=== PATIENT | female | born 1940 | race Hispanic/Latino ===

== ENCOUNTER 2017-03-04 05:49 | Emergency (ER) | payer MEDICARE, MEDICAID ==
[2017-03-04 06:12] VITALS: RESP 18
[2017-03-04 07:02] LABS: BASO # 0.1 K/uL (0.0-0.2); BASO % 1.2 % (0.0-2.0); EOS % 0.5 % (0.0-4.0); HEMATOCRIT 38.8 % (34.0-47.0); LYMPH # 1.2 K/uL (1.0-4.3); MEAN CELL VOLUME 82.2 fl (81.0-99.0); MEAN CORPUSCULAR HEMOGLOBIN 27.2 pg (27.0-31.0); MEAN CORPUSCULAR HGB CONC 33.1 g/dL (33.0-37.0); MEAN PLATELET VOLUME 8.5 fl (7.2-11.7); MONO # 0.5 K/uL (0.0-0.8); MONO % 5.8 % (0.0-10.0); NEUT # 6.1 K/uL (1.8-7.0); NEUT % 77.5 % (50.0-75.0); NRBC % 0.1 % (0.0-0.0); RED CELL DISTRIBUTION WIDTH 14.3 % (11.5-14.5); WHITE BLOOD COUNT 7.9 K/uL (4.8-10.8)
--- NOTE | 2017-03-04 07:03 | ED PDOC ---
Syncope/Near Syncope/Dizziness Time Seen by Provider: 03/04/17 06:00 Chief Complaint (Nursing): Dizziness/Lightheaded Chief Complaint (Provider): dizziness History Per: Patient History/Exam Limitations: no limitations Onset/Duration Of Symptoms: Hrs Current Symptoms Are (Timing): Better Additional Complaint(s): Martina Hernandez is a 76 yo F with PMH vertigo, DM2, HTN, breast cancer who presented to the ED today 03/04/17 due to 2 episodes of dizziness overnight. Pt states that she woke up around 1 am to use the restroom and felt dizzy- called 911. As per pt, EMS came and took her BP (170/100), and she did a selfcheck fingerstick (122); she states that EMS told her they can only take her to [facility], but pt wanted to go to [place], so she refused to go with them. She went back to bed, and woke up around 5 am with the similar dizzy feeling, states "I felt the bed was upside down." States she tried to stand up from bed but fell backwards onto bed (denies LOC or head trauma). At that point, pt called her daughters who brought her to ED. Took 25 mg meclezine this morning. In ED she denies dizziness, states she feels her head is heavy. Denies associated nausea and/or vomiting. Does not exhibit any focal neural deficits. Pt has had vertigo for over 10 years and is supposed to be on standing dose of meclezine 25mg BID, but admitted in private that she has been taking meclezine only once daily for about one year now. States that this episode feels different from her usual vertigo. ROS: denies chest pain, shortness of breath, dizziness at present time, headache , PMD: Dr. Bland Past Med hx: HTN, DM2, vertigo, breast cancer Past Surg hx: double mastectomy and reconstruction, knee replacement, parathyroid gland resection Lives alone, ambulates with walker, able to cook/care for herself. As per daughters lives in "building with elderly people" Allergies: naproxen Past Medical History Vital Signs: Last Vital Signs Temp 97.5 F L 03/04/17 06:05 Pulse 98 H 03/04/17 06:05 Resp 18 03/04/17 06:05 BP 154/94 H 03/04/17 06:05 Pulse Ox 99 03/04/17 06:05 - Medical History PMH: Arthritis (left knee), Diabetes, HTN Other PMH: Vertigo - Surgical History Other surgeries: knee replacement, double mastectomy and reconstruction - Family History Family History: States: Unknown Family Hx - Living Arrangements Living Arrangements: Long Term/Assist Lvng - Home Medications Home Medications: Ambulatory Orders Medication Instructions Recorded Naproxen [Naprosyn] 500 mg PO Q12H #20 tab 06/10/16 traMADol [Ultram] 50 mg PO Q8 #10 tab 06/10/16 - Allergies Allergies/Adverse Reactions: Allergies Allergy/AdvReac Type Severity Reaction Status Date / Time naproxen AdvReac bleeding Verified 03/04/17 06:04 Review of Systems ROS Statement: Except As Marked, All Systems Reviewed And Found Negative Constitutional: Positive for: Other Neurological: Positive for: Dizziness Physical Exam - Physical Exam Appears: Positive for: No Acute Distress Head Exam: Positive for: ATRAUMATIC, NORMAL INSPECTION Skin: Positive for: Normal Color, Warm, Dry Eye Exam: Positive for: Normal appearance, EOMI Neck: Positive for: Painless ROM, Supple Cardiovascular/Chest: Positive for: Regular Rate, Rhythm. Negative for: Murmur Respiratory: Positive for: Normal Breath Sounds. Negative for: Respiratory Distress Gastrointestinal/Abdominal: Positive for: Normal Exam, Bowel Sounds, Soft Extremity: Negative for: Tenderness, Pedal Edema, Deformity Neurologic/Psych: Positive for: Alert, compliance auditor II-XII, Oriented - ECG O2 Sat by Pulse Oximetry: 99 Medical Decision Making Medical Decision Makin Fingerstick EKG CMP CBC Troponin Head CT w/o contrast Pt discussed with Dr. Monge; to be signed out to Dr. Brunson Disposition - Clinical Impression Clinical Impression: Near syncope - Patient ED Disposition Is Patient to be Admitted: Transfer of Care (to Dr. Brunson) - Disposition Disposition Time: 07:08 Condition: FAIR
[2017-03-04 07:10] LABS: ALB/GLOB RATIO 0.9 (1.0-2.1); ALKALINE PHOSPHATASE 129 U/L (38-126); ALT/SGPT 66 U/L (9-52); AST/SGOT 55 U/L (14-36); BILIRUBIN,TOTAL 0.5 mg/dl (0.2-1.3); BLOOD UREA NITROGEN 15 mg/dl (7-17); CARBON DIOXIDE 24 mmol/L (22-30); CHLORIDE 108 mmol/L (98-107); GFR AFRICAN-AMERICAN > 60; GLUCOSE,RANDOM 205 mg/dL (65-105); POTASSIUM 4.5 MMOL/L (3.6-5.0); SODIUM 142 mmol/l (132-148); TOTAL PROTEIN 8.1 G/DL (6.3-8.2)
--- NOTE | 2017-03-04 07:39 | CT ---
EXAM: CT Head Without Intravenous Contrast EXAM DATE/TIME: 03/04/2017 6:36 AM CLINICAL HISTORY: 76 years old, female; Signs and symptoms; Dizziness and other: Head heaviness; Patient HX: HX breast cancer; Additional info: Head heaviness/dizziness TECHNIQUE: Axial computed tomography images of the head/brain without intravenous contrast. All CT scans at this facility use one or more dose reduction techniques, viz.: automated exposure control; ma/kV adjustment per patient size (including targeted exams where dose is matched to indication; i.e. head); or iterative reconstruction technique. Coronal and sagittal reformatted images were created and reviewed. COMPARISON: No relevant prior studies available. FINDINGS: There is no subdural or subarachnoid hemorrhage. There is no intraparenchymal hemorrhage or hemorrhagic contusion. Normal art white differentiation is noted. No midline shift or mass effect is identified. There are periventricular white matter changes of small vessel ischemic disease. There is cerebral atrophy. Calvarium and visualized facial bones appear intact. There is kathy bullosa right middle turbinate with rightward deviation of nasal septum. Included paranasal sinuses and mastoids are clear. IMPRESSION: 1. No evidence of acute intracerebral hemorrhage or edema. 2. Small vessel ischemic disease and atrophy.
[2017-03-04 07:52] VITALS: O2SAT 98
--- NOTE | 2017-03-04 08:42 | ED PDOC ---
- Laboratory Results Result Diagrams: 03/04/17 06:58 03/04/17 06:58 - ECG O2 Sat by Pulse Oximetry: 98 Medical Decision Making Medical Decision Making: Time: 07:00 Patient is signed over to me by Dr. Monge pending reevaluation Time: 08:40 Upon reevaluation, patient is feeling much better. Pt ambulated in ED without difficulty. Daughter states she will stay with patient today. Scribe Attestation: Documented by Hu Johnson acting as a scribe for Emi Brunson MD. Scribe Attestation: All medical record entries made by the Scribe were at my direction and personally dictated by me. I have reviewed the chart and agree that the record accurately reflects my personal performance of the history, physical exam, medical decision making, and the department course for this patient. I have also personally directed, reviewed, and agree with the discharge instructions and disposition. Disposition - Clinical Impression Clinical Impression: Vertigo - POA Present On Arrival: None - Disposition Referrals: Merrill Bland MD [Family Provider] - Disposition: Routine/Home Disposition Time: 08:50 Condition: IMPROVED Instructions: Vertigo (ED) Forms: [employer] (Mongolian)
[2017-03-04 08:59] VITALS: BP 130/80; PULSE 80; TEMP 97
--- NOTE | 2017-03-04 14:07 | CARD ---
APPROVED REPORT EKG Measurement Heart [id number] <Conclusion> Normal sinus rhythm Inferior infarct, age undetermined Abnormal ECG
== END 2017-03-04 08:59 | disposition home or self-care (01) ==
LOC: H.ER 05:49
DX: R42 Dizziness and giddiness (principal); E11.9 Type 2 diabetes mellitus without complications; I10 Essential (primary) hypertension; Z85.3 Personal history of malignant neoplasm of breast

== ENCOUNTER 2017-03-12 11:38 | Emergency (ER) | payer MEDICARE, MEDICAID ==
[2017-03-12 11:43] VITALS: BP 165/95; PULSE 116; RESP 20; O2SAT 99
[2017-03-12] MEDS ORDERED: Sodium Chloride 0.9% 1,000 ML IV STA (11:52)
--- NOTE | 2017-03-12 12:04 | ED PDOC ---
HPI: General Adult Time Seen by Provider: 03/12/17 11:44 Chief Complaint (Nursing): Fever Chief Complaint (Provider): Fever History Per: Patient History/Exam Limitations: no limitations Onset/Duration Of Symptoms: Days (x2) Current Symptoms Are (Timing): Still Present Additional Complaint(s): Martina Hernandez is a 76 year old female with a past medical history of hypertension status post left knee replacement who presents to the ED complaining of fever and body aches x2 days. Denies associated cough, nausea, vomiting, diarrhea, abdominal pain, and urinary symptoms. PMD: Merrill Bland MD Past Medical History Reviewed: Historical Data, Nursing Documentation, Vital Signs Vital Signs: Last Vital Signs Temp 97 F L 03/12/17 12:53 Pulse 116 H 03/12/17 11:42 Resp 20 03/12/17 11:42 BP 165/95 H 03/12/17 11:42 Pulse Ox 99 03/12/17 12:10 - Medical History PMH: Arthritis (left knee), Diabetes, HTN - Surgical History Other surgeries: Left knee replacement - Family History Family History: States: Unknown Family Hx - Home Medications Home Medications: Ambulatory Orders Medication Instructions Recorded Naproxen [Naprosyn] 500 mg PO Q12H #20 tab 06/10/16 traMADol [Ultram] 50 mg PO Q8 #10 tab 06/10/16 Ciprofloxacin HCl [Cipro] 500 mg PO BID #20 tab 03/12/17 - Allergies Allergies/Adverse Reactions: Allergies Allergy/AdvReac Type Severity Reaction Status Date / Time naproxen AdvReac bleeding Verified 03/04/17 06:04 Review of Systems ROS Statement: Except As Marked, All Systems Reviewed And Found Negative Constitutional: Positive for: Fever Respiratory: Negative for: Cough Gastrointestinal: Negative for: Nausea, Vomiting, Abdominal Pain, Diarrhea Genitourinary Female: Negative for: Dysuria, Frequency, Incontinence, Hematuria Musculoskeletal: Positive for: Other (Body aches) Physical Exam - Reviewed Nursing Documentation Reviewed: Yes Vital Signs Reviewed: Yes - Physical Exam Appears: Positive for: Well, Non-toxic, No Acute Distress Head Exam: Positive for: ATRAUMATIC, NORMAL INSPECTION, NORMOCEPHALIC Skin: Positive for: Normal Color, Warm, DRY Eye Exam: Positive for: EOMI, Normal appearance, PERRL Neck: Positive for: Normal, Painless ROM, Supple Cardiovascular/Chest: Positive for: Regular Rate, Rhythm. Negative for: Murmur Respiratory: Positive for: Normal Breath Sounds. Negative for: Respiratory Distress Gastrointestinal/Abdominal: Positive for: Normal Exam, Bowel Sounds, Soft. Negative for: Tenderness Back: Positive for: Normal Inspection. Negative for: L CVA Tenderness, R CVA Tenderness, Vertebral Tenderness Extremity: Positive for: Normal ROM, Other (Left knee surgical scar, no erythema , no warmth). Negative for: Pedal Edema, Deformity Neurologic/Psych: Positive for: Alert, Oriented. Negative for: Motor/Sensory Deficits - Laboratory Results Result Diagrams: 03/12/17 12:07 03/12/17 12:07 - ECG O2 Sat by Pulse Oximetry: 99 (RA) Pulse Ox Interpretation: Normal Medical Decision Making Medical Decision Making: Time: 11:51 Initial Impression: Non-viral illness Plan: --VBG shock panel --EKG --CMP --ED urine dipstick --CBC w/ differential --X-Ray chest two views --Sodium Chloride 0.9% 1,000 ml IV --Tylenol 650 mg PO --Urine culture --Blood culture --Influenza A B --Reevaluation Scribe Attestation: Documented by Subhash Aguilera acting as a scribe for Matt Khan MD. Scribe Attestation: All medical record entries made by the Scribe were at my direction and personally dictated by me. I have reviewed the chart and agree that the record accurately reflects my personal performance of the history, physical exam, medical decision making, and the department course for this patient. I have also personally directed, reviewed, and agree with the discharge instructions and disposition. Disposition - Clinical Impression Clinical Impression: UTI (urinary tract infection) - Patient ED Disposition Is Patient to be Admitted: No Counseled Patient/Family Regarding: Studies Performed, Diagnosis, Need For Followup, Rx Given - Disposition Referrals: Merrill Bland MD [Staff Provider] - Disposition: Routine/Home Disposition Time: 13:34 Condition: FAIR Prescriptions: Ciprofloxacin HCl [Cipro] 500 mg PO BID #20 tab Instructions: Urinary Tract Infection in Women (ED) Forms: [employer] (Emirati)
[2017-03-12 12:13] LABS: BASO # 0.1 K/uL (0.0-0.2); EOS % 0.1 % (0.0-4.0); HEMATOCRIT 38.7 % (34.0-47.0); LYMPH # 1.7 K/uL (1.0-4.3); LYMPH % 11.8 % (20.0-40.0); MEAN CELL VOLUME 80.7 fl (81.0-99.0); MEAN CORPUSCULAR HEMOGLOBIN 26.9 pg (27.0-31.0); MEAN CORPUSCULAR HGB CONC 33.3 g/dL (33.0-37.0); MEAN PLATELET VOLUME 8.8 fl (7.2-11.7); MONO # 1.3 K/uL (0.0-0.8); MONO % 9.6 % (0.0-10.0); NEUT # 10.8 K/uL (1.8-7.0); NEUT % 77.5 % (50.0-75.0); RED CELL DISTRIBUTION WIDTH 14.6 % (11.5-14.5); WHITE BLOOD COUNT 13.9 K/uL (4.8-10.8)
[2017-03-12 12:31] LABS: ALB/GLOB RATIO 0.9 (1.0-2.1); ALKALINE PHOSPHATASE 115 U/L (38-126); ALT/SGPT 55 U/L (9-52); AST/SGOT 42 U/L (14-36); BILIRUBIN,TOTAL 0.6 mg/dl (0.2-1.3); BLOOD UREA NITROGEN 18 mg/dl (7-17); CALCIUM 8.7 mg/dL (8.4-10.2); CARBON DIOXIDE 22 mmol/L (22-30); CHLORIDE 105 mmol/L (98-107); GFR AFRICAN-AMERICAN > 60; GLUCOSE,RANDOM 155 mg/dL (65-105); POTASSIUM 3.8 MMOL/L (3.6-5.0); SODIUM 140 mmol/l (132-148); TOTAL PROTEIN 8.2 G/DL (6.3-8.2)
[2017-03-12 12:54] VITALS: TEMP 97
--- NOTE | 2017-03-12 13:37 | CARD ---
APPROVED REPORT EKG Measurement Heart [id number] HI [id number] <Conclusion> Sinus tachycardia Cannot exclude old inferior wall infarct Abnormal ECG
--- NOTE | 2017-03-12 15:04 | RAD ---
HISTORY: Fever. COMPARISON: 12/20/2012. TECHNIQUE: Chest PA and lateral FINDINGS: LUNGS: No active pulmonary disease. PLEURA: No significant pleural effusion identified. No pneumothorax apparent. CARDIOVASCULAR: No radiographic findings to suggest acute or significant cardiovascular disease. OSSEOUS STRUCTURES: No significant abnormalities. VISUALIZED UPPER ABDOMEN: Normal. OTHER FINDINGS: None. IMPRESSION: No active disease. No significant interval change compared to the prior examination(s).
== END 2017-03-12 15:00 | disposition home or self-care (01) ==
LOC: H.ER 11:38
DX: N39.0 Urinary tract infection, site not specified (principal); E11.9 Type 2 diabetes mellitus without complications; I10 Essential (primary) hypertension; Z96.652 Presence of left artificial knee joint

== ENCOUNTER 2018-04-27 01:20 | Emergency (ER) | payer MEDICARE, MEDICAID ==
[2018-04-27 01:28] VITALS: TEMP 97.9
[2018-04-27 02:10] LABS: HEMOGLOBIN 12.9 g/dL (12.0-16.0); MEAN CELL VOLUME 82.6 fl (81.0-99.0); MEAN CORPUSCULAR HEMOGLOBIN 27.9 pg (27.0-31.0); MEAN CORPUSCULAR HGB CONC 33.8 g/dL (33.0-37.0); RBC 4.63 Mil/uL (3.80-5.20); RED CELL DISTRIBUTION WIDTH 14.4 % (11.5-14.5); WHITE BLOOD COUNT 8.3 K/uL (4.8-10.8)
[2018-04-27 02:14] LABS: SQUAMOUS EPITHIAL 10 /hpf (0-5); URINE BILIRUBIN NEGATIVE (NEGATIVE); URINE BLOOD NEGATIVE (NEGATIVE); URINE CLARITY SLIGHTY-CLOUDY (Clear); URINE COLOR YELLOW (YELLOW); URINE GLUCOSE (UA) 50 mg/dL (NEGATIVE); URINE LEUKOCYTE ESTERASE NEG Leu/uL (Negative); URINE PROTEIN >=500 mg/dL (NEGATIVE); URINE UROBILINOGEN 0.2-1.0 mg/dL (0.2-1.0)
[2018-04-27 02:22] LABS: CALCIUM 8.8 mg/dL (8.4-10.2)
[2018-04-27 02:24] LABS: VENOUS BLOOD GAS BASE EXCESS -2.5 mmol/L (0.0-2.0); VENOUS BLOOD GAS PCO2 35 mmHg (40-60); VENOUS BLOOD GAS PO2 57 mm/Hg (30-55)
--- NOTE | 2018-04-27 03:19 | ED PDOC ---
HPI: General Adult Time Seen by Provider: 04/27/18 01:29 Chief Complaint (Nursing): Medical Clearance Chief Complaint (Provider): Generalized Weakness History Per: Patient History/Exam Limitations: no limitations Onset/Duration Of Symptoms: Hrs Current Symptoms Are (Timing): Still Present Additional Complaint(s): 77 y/o female with a PMHx of breast cancer, DM and HTN presents to the ED fore evaluation of generalized weakness. Patient reports of being nervous in the m iddle of the night after feeling generalized weakness. Patient states she measured her blood pressure and noted it was high. Otherwise, patient denies any chest pain, shortness of breath, focal weakness, numbness and difficulty walking. PMD: Merrill Bland Past Medical History Reviewed: Historical Data, Nursing Documentation, Vital Signs Vital Signs: Last Vital Signs Temp 97.9 F 04/27/18 01:26 Pulse 81 04/27/18 02:35 Resp 15 04/27/18 02:35 BP 180/98 H 04/27/18 02:35 Pulse Ox 96 04/27/18 02:35 - Medical History PMH: Arthritis (left knee), Diabetes, HTN Other PMH: Breast Cancer - Surgical History Surgical History: No Surg Hx - Family History Family History: States: Unknown Family Hx - Home Medications Home Medications: Ambulatory Orders Medication Instructions Recorded Naproxen [Naprosyn] 500 mg PO Q12H #20 tab 06/10/16 traMADol [Ultram] 50 mg PO Q8 #10 tab 06/10/16 Amoxicillin/Potassium Clav 1 tab PO TID #30 tab 03/12/17 [Augmentin 500 mg-125 mg] - Allergies Allergies/Adverse Reactions: Allergies Allergy/AdvReac Type Severity Reaction Status Date / Time naproxen AdvReac bleeding Verified 03/04/17 06:04 Review of Systems ROS Statement: Except As Marked, All Systems Reviewed And Found Negative Constitutional: Positive for: Weakness Cardiovascular: Negative for: Chest Pain Respiratory: Negative for: Shortness of Breath Neurological: Negative for: Weakness, Numbness Physical Exam - Reviewed Nursing Documentation Reviewed: Yes Vital Signs Reviewed: Yes - Physical Exam Appears: Positive for: No Acute Distress Head Exam: Positive for: ATRAUMATIC Skin: Positive for: Normal Color, Warm, Dry Eye Exam: Positive for: Normal appearance Neck: Positive for: Normal, Painless ROM Cardiovascular/Chest: Positive for: Regular Rate, Rhythm. Negative for: Murmur Respiratory: Positive for: Normal Breath Sounds. Negative for: Respiratory Distress Gastrointestinal/Abdominal: Positive for: Normal Exam, Soft. Negative for: Tenderness Extremity: Positive for: Normal ROM. Negative for: Deformity Neurologic/Psych: Positive for: Alert, curtain stitcher II-XII, Oriented, Gait (normal). Negative for: Motor/Sensory Deficits - Laboratory Results Result Diagrams: 04/27/18 02:00 04/27/18 02:00 Lab Results: pO2 57 mm/Hg (30-55) H 04/27/18 02:20 VBG pH 7.40 (7.32-7.43) 04/27/18 02:20 VBG pCO2 35 mmHg (40-60) L 04/27/18 02:20 VBG HCO3 22.8 mmol/L 04/27/18 02:20 VBG Total CO2 22.8 mmol/L (22-28) 04/27/18 02:20 VBG O2 Sat (Calc) 94.7 % (40-65) H 04/27/18 02:20 VBG Base Excess -2.5 mmol/L (0.0-2.0) L 04/27/18 02:20 VBG Potassium 3.8 mmol/L (3.6-5.2) 04/27/18 02:20 Sodium 134.0 mmol/L (132-148) 04/27/18 02:20 Chloride 105.0 mmol/L (98-107) 04/27/18 02:20 Glucose 224 mg/dL (65-105) H 04/27/18 02:20 Lactate 1.3 mmol/L (0.7-2.1) 04/27/18 02:20 FiO2 21.0 % 04/27/18 02:20 Urine Color Yellow (YELLOW) 04/27/18 02:00 Urine Clarity Slighty-cloudy (Clear) 04/27/18 02:00 Urine pH 6.0 (5.0-8.0) 04/27/18 02:00 Ur Specific [place] 1.014 (1.003-1.030) 04/27/18 02:00 Urine Protein >=500 mg/dL (NEGATIVE) 04/27/18 02:00 Urine Glucose (UA) 50 mg/dL (NEGATIVE) 04/27/18 02:00 Urine Ketones Negative mg/dL (NEGATIVE) 04/27/18 02:00 Urine Blood Negative (NEGATIVE) 04/27/18 02:00 Urine Nitrate Negative (NEGATIVE) 04/27/18 02:00 Urine Bilirubin Negative (NEGATIVE) 04/27/18 02:00 Urine Urobilinogen 0.2-1.0 mg/dL (0.2-1.0) 04/27/18 02:00 Ur Leukocyte Esterase Neg Navdeep/uL (Negative) 04/27/18 02:00 Urine RBC (Auto) 4 /hpf (0-3) H 04/27/18 02:00 Urine Microscopic WBC 17 /hpf (0-5) H 04/27/18 02:00 Ur Squamous Epith Cells 10 /hpf (0-5) H 04/27/18 02:00 - ECG O2 Sat by Pulse Oximetry: 96 (RA) Pulse Ox Interpretation: Normal Medical Decision Making Medical Decision Making: Time: 0203 A/P: 77 y/o well appearig female presenting with an unspecified weakness. -- Vital stable -- Blood pressure is currently elevated, will check labs for any acute abnormalities. -- Symptoms seem to be more related to an anxious state than true organic cause. -- VBG -- BMP -- CBC -- Urinalysis -- Glucose, POC Time: 0412 -- Patient reports an improvement of symptoms. Patient is stable for discharge home. Vitals improved. Scribe Attestation: Documented by Alexandria Galloway, acting as a scribe for Taiwo Day MD. Provider Scribe Attestation: All medical record entries made by the Scribe were at my direction and personally dictated by me. I have reviewed the chart and agree that the record accurately reflects my personal performance of the history, physical exam, medical decision making, and the department course for this patient. I have also personally directed, reviewed, and agree with the discharge instructions and disposition. Disposition - Clinical Impression Clinical Impression: Hypertension - Patient ED Disposition Is Patient to be Admitted: No Counseled Patient/Family Regarding: Studies Performed, Diagnosis, Need For Followup, Rx Given - Disposition Referrals: Merrill Bland MD [Family Provider] - Disposition: Routine/Home Disposition Time: 04:13 Condition: IMPROVED Instructions: High Blood Pressure in Adults, General (DC) Forms: [employer] ([place]er)
[2018-04-27 03:28] VITALS: BP 150/90; PULSE 76; RESP 16
[2018-04-27 04:13] VITALS: O2SAT 96
== END 2018-04-27 04:41 | disposition home or self-care (01) ==
LOC: H.ER 01:20
DX: I10 Essential (primary) hypertension (principal); E11.9 Type 2 diabetes mellitus without complications; Z85.3 Personal history of malignant neoplasm of breast

== ENCOUNTER 2018-05-26 09:56 | Inpatient (IN) | payer MEDICARE, MEDICAID ==
[2018-05-26 10:16] VITALS: BMI 30.9
[2018-05-26] MEDS ORDERED: Iohexol 240 (50 ml) PO STA (10:58)
[2018-05-26] MEDS ORDERED: Sodium Chloride 0.9% 1,000 ML IV STA (11:00)
[2018-05-26] MEDS ORDERED: Iohexol 240 (50 ml) ONE (11:13)
[2018-05-26] MEDS ORDERED: Morphine 4 MG/ML VIAL ONE (11:13)
--- NOTE | 2018-05-26 11:46 | ED PDOC ---
HPI: Abdomen Time Seen by Provider: 05/26/18 10:29 Chief Complaint (Nursing): Abdominal Pain Chief Complaint (Provider): Abdominal Pain History Per: Patient History/Exam Limitations: no limitations Onset/Duration Of Symptoms: Days (x3) Current Symptoms Are (Timing): Still Present Additional Complaint(s): Patient is a 77 y/o female with a PMHx of arthritis, HTN, diverticulitis, and diabetes who presents to the ED for evaluation of salas abdominal pain for the past three days. Patient states thge pain radiates to her bilateral lower back. Patient admits to urinary frequency but denies dysuria, hematuria, nausea, vomiting, diarrhea, constipation, fever, and chills. Of note, patient was last seen by PCP two days ago for the pain and was prescribed Augmentin, however, the symptoms only worsened since. PCP: Dr. Merrill Bland Past Medical History Reviewed: Historical Data, Nursing Documentation, Vital Signs Vital Signs: Last Vital Signs Temp 98.1 F 05/26/18 10:16 Pulse 105 H 05/26/18 10:16 Resp 20 05/26/18 10:16 BP 139/78 05/26/18 10:16 Pulse Ox 97 05/26/18 10:16 - Medical History PMH: Arthritis (left knee), Diabetes, Diverticulitis, HTN - Surgical History Surgical History: Appendectomy, Cholecystectomy Other surgeries: partial and then total hysterectomy - Family History Family History: States: No Known Family Hx - Social History Current smoker - smoking cessation education provided: No Alcohol: None Drugs: Denies - Home Medications Home Medications: Ambulatory Orders Medication Instructions Recorded RX: Aspirin [Ecotrin] 81 mg PO DAILY tabec 05/29/18 RX: Cefdinir [Omnicef] 300 mg PO BID 10 Days #20 cap 05/29/18 RX: GlipiZIDE [Glucotrol] 2.5 mg PO ACB tab 05/29/18 RX: Losartan [Cozaar] 100 mg PO DAILY tab 05/29/18 RX: Meclizine [Meclizine*] 25 mg PO BID tab 05/29/18 RX: amLODIPine [Norvasc] 10 mg PO DAILY tab 05/29/18 metroNIDAZOLE [Flagyl] 500 mg PO Q8H 10 Days #30 tab 05/29/18 - Allergies Allergies/Adverse Reactions: Allergies Allergy/AdvReac Type Severity Reaction Status Date / Time naproxen AdvReac bleeding Verified 03/04/17 06:04 NSAIDS (Non-Steroidal AdvReac Bleeding Verified 05/26/18 10:39 Anti-Inflamma Review of Systems ROS Statement: Except As Marked, All Systems Reviewed And Found Negative (as per hPI) Constitutional: Negative for: Fever, Chills Gastrointestinal: Positive for: Abdominal Pain (lower). Negative for: Nausea, Vomiting, Diarrhea Genitourinary Female: Positive for: Frequency. Negative for: Dysuria, Hematuria Musculoskeletal: Positive for: Back Pain (bilateral lower) Physical Exam - Reviewed Nursing Documentation Reviewed: Yes Vital Signs Reviewed: Yes - Physical Exam Appears: Positive for: In Acute Distress (painful) Head Exam: Positive for: ATRAUMATIC, NORMOCEPHALIC Skin: Positive for: Warm, Dry Eye Exam: Positive for: EOMI, PERRL ENT: Negative for: Pharyngeal Erythema, Tonsillar Exudate Neck: Positive for: Painless ROM, Supple Cardiovascular/Chest: Positive for: Regular Rate, Rhythm. Negative for: Murmur Respiratory: Positive for: Normal Breath Sounds. Negative for: Respiratory Distress Gastrointestinal/Abdominal: Positive for: Soft (protuberant), Tenderness (to palpation of left lower quadrant) Back: Positive for: Normal Inspection. Negative for: Decreased ROM Extremity: Positive for: Normal ROM. Negative for: Deformity Lymphatic: Negative for: Adenopathy Neurologic/Psych: Positive for: Alert. Negative for: Motor/Sensory Deficits - Laboratory Results Result Diagrams: 05/29/18 05:40 05/29/18 05:40 - ECG O2 Sat by Pulse Oximetry: 97 (RA) Pulse Ox Interpretation: Normal Medical Decision Making Medical Decision Making: Time: 1058 Impression: Abdominal pain DDx icludes but not limited to diverticulitis, cholitis, enteritis, UTI, and cystitis. Plan: Type and Scren CT Abd Pelvis PO & IV Contrast CMP Lact Acid, Plasma Lipase CBC PTT Prothrombin Time Glucose, POC Morphine 4 mg IVP IV Fluids Omnipaque 50 ml PO Blood Culture IV Insertion UA ---- Scribe Attestation: Documented by Nitesh Kasper, acting as a scribe for Kenyatta Gustafson MD. Provider Scribe Attestation: All medical record entries made by the Scribe were at my direction and personally dictated by me. I have reviewed the chart and agree that the record accurately reflects my personal performance of the history, physical exam, medical decision making, and the department course for this patient. I have also personally directed, reviewed, and agree with the discharge instructions and disposition. Disposition - Clinical Impression Clinical Impression: UTI (urinary tract infection), Acute diverticulitis - Disposition Disposition: Transfer of Care Disposition Time: 15:00 Condition: FAIR Patient Signed Over To: Kaylin Lopez Handoff Comments: Pending CT Scan and final ER disposition.
[2018-05-26 12:38] LABS: BASO # 0.1 K/uL (0.0-0.2); BASO % 0.5 % (0.0-2.0); EOS % 0.2 % (0.0-4.0); HEMOGLOBIN 12.9 g/dL (12.0-16.0); LYMPH # 1.5 K/uL (1.0-4.3); LYMPH % 11.5 % (20.0-40.0); MEAN CELL VOLUME 82.4 fl (81.0-99.0); MEAN CORPUSCULAR HEMOGLOBIN 27.8 pg (27.0-31.0); MEAN CORPUSCULAR HGB CONC 33.7 g/dL (33.0-37.0); MEAN PLATELET VOLUME 9.7 fl (7.2-11.7); MONO # 1.1 K/uL (0.0-0.8); MONO % 8.2 % (0.0-10.0); NEUT # 10.7 K/uL (1.8-7.0); NEUT % 79.6 % (50.0-75.0); NRBC % 0.3 % (0.0-0.0); RBC 4.63 Mil/uL (3.80-5.20); RED CELL DISTRIBUTION WIDTH 14.5 % (11.5-14.5); WHITE BLOOD COUNT 13.5 K/uL (4.8-10.8)
[2018-05-26 12:44] LABS: INR 1.2; PROTHROMBIN TIME 13.1 Seconds (9.8-13.1)
[2018-05-26 12:46] LABS: PARTIAL THROMBOPLASTIN TIME 34.2 Seconds (25.6-37.1)
[2018-05-26 12:48] LABS: SQUAMOUS EPITHIAL 8 /hpf (0-5); URINE BACTERIA RARE (<OCC); URINE BILIRUBIN NEGATIVE (NEGATIVE); URINE BLOOD NEGATIVE (NEGATIVE); URINE CLARITY CLOUDY (Clear); URINE COLOR YELLOW (YELLOW); URINE GLUCOSE (UA) NEG (NEGATIVE); URINE LEUKOCYTE ESTERASE SMALL Leu/uL (Negative); URINE PROTEIN 100 mg/dL (NEGATIVE); URINE UROBILINOGEN 0.2-1.0 mg/dL (0.2-1.0)
[2018-05-26 12:53] LABS: ALB/GLOB RATIO 0.9 (1.0-2.1); ALBUMIN 4.1 g/dL (3.5-5.0); CALCIUM 9.5 mg/dL (8.4-10.2)
--- NOTE | 2018-05-26 15:21 | CT ---
Date of service: 05/26/2018 PROCEDURE: CT Abdomen and Pelvis without intravenous contrast HISTORY: LLQ pain COMPARISON: 05/24/2007 TECHNIQUE: Technique. Contrast dose: Radiation dose: Total exam DLP = 791.23 mGy-cm. This CT exam was performed using one or more of the following dose reduction techniques: Automated exposure control, adjustment of the mA and/or kV according to patient size, and/or use of iterative reconstruction technique. FINDINGS: LOWER THORAX: Bilateral breast augmentation. LIVER: Nodular contour of the liver compatible with cirrhosis. GALLBLADDER AND BILE DUCTS: Cholecystectomy. PANCREAS: Unremarkable. No gross lesion or ductal dilatation. SPLEEN: Unremarkable. ADRENALS: Unremarkable. No mass. KIDNEYS AND URETERS: Mild dilatation of the left extrarenal pelvis. VASCULATURE: Unremarkable. No aortic aneurysm. No aortic atherosclerotic calcification or mural plaque present. BOWEL: Extensive sigmoid colon diverticulosis with pericolonic fat infiltration in the pelvis consistent with acute diverticulitis. No gross evidence of pneumoperitoneum or abscess. APPENDIX: Unremarkable. Normal appendix. PERITONEUM: Unremarkable. No free fluid. No free air. LYMPH NODES: Unremarkable. No enlarged lymph nodes. BLADDER: Unremarkable. REPRODUCTIVE: Status post hysterectomy. BONES: No acute fracture. OTHER FINDINGS: None. IMPRESSION: Extensive sigmoid colon diverticulosis with pericolonic fat infiltration in the pelvis consistent with acute diverticulitis. No gross evidence of pneumoperitoneum or abscess.
--- NOTE | 2018-05-26 15:58 | ED PDOC ---
- Laboratory Results Result Diagrams: 05/26/18 12:17 05/26/18 12:17 Lab Results: PT 13.1 Seconds (9.8-13.1) 05/26/18 12:17 INR 1.2 05/26/18 12:17 APTT 34.2 Seconds (25.6-37.1) 05/26/18 12:17 Total Bilirubin 0.7 mg/dl (0.2-1.3) 05/26/18 12:17 AST 47 U/L (14-36) H D 05/26/18 12:17 ALT 48 U/L (9-52) 05/26/18 12:17 Alkaline Phosphatase 136 U/L (38-126) H 05/26/18 12:17 Total Protein 8.5 G/DL (6.3-8.2) H 05/26/18 12:17 Albumin 4.1 g/dL (3.5-5.0) 05/26/18 12:17 Globulin 4.4 gm/dL (2.2-3.9) H 05/26/18 12:17 Albumin/Globulin Ratio 0.9 (1.0-2.1) L 05/26/18 12:17 Lipase 67 U/L (23-300) 05/26/18 12:17 Urine Color Yellow (YELLOW) 05/26/18 12:17 Urine Clarity Cloudy (Clear) 05/26/18 12:17 Urine pH 5.0 (5.0-8.0) 05/26/18 12:17 Ur Specific [place] 1.015 (1.003-1.030) 05/26/18 12:17 Urine Protein 100 mg/dL (NEGATIVE) 05/26/18 12:17 Urine Glucose (UA) Neg mg/dL (NEGATIVE) 05/26/18 12:17 Urine Ketones Negative mg/dL (NEGATIVE) 05/26/18 12:17 Urine Blood Negative (NEGATIVE) 05/26/18 12:17 Urine Nitrate Negative (NEGATIVE) 05/26/18 12:17 Urine Bilirubin Negative (NEGATIVE) 05/26/18 12:17 Urine Urobilinogen 0.2-1.0 mg/dL (0.2-1.0) 05/26/18 12:17 Ur Leukocyte Esterase Small [place]/uL (Negative) 02/17/19 12:17 Urine RBC (Auto) 7 /hpf (0-3) H 05/26/18 12:17 Urine Microscopic WBC 28 /hpf (0-5) H 05/26/18 12:17 Ur Squamous Epith Cells 8 /hpf (0-5) H 05/26/18 12:17 Urine Bacteria Rare (<OCC) 05/26/18 12:17 Hyaline Casts 3-5 /hpf (0-2) H 05/26/18 12:17 - ECG O2 Sat by Pulse Oximetry: 97 (RA) Medical Decision Making Medical Decision Making: Time: 1500 Patient endorsed to provider from Kenyatta Gustafson MD. Pending CT abdomen. Time: 1516 FINDINGS: LOWER THORAX: Bilateral breast augmentation. LIVER: Nodular contour of the liver compatible with cirrhosis. GALLBLADDER AND BILE DUCTS: Cholecystectomy. PANCREAS: Unremarkable. No gross lesion or ductal dilatation. SPLEEN: Unremarkable. ADRENALS: Unremarkable. No mass. KIDNEYS AND URETERS: Mild dilatation of the left extrarenal pelvis. VASCULATURE: Unremarkable. No aortic aneurysm. No aortic atherosclerotic calcification or mural plaque present. BOWEL: Extensive sigmoid colon diverticulosis with pericolonic fat infiltration in the pelvis consistent with acute diverticulitis. No gross evidence of pneumoperitoneum or abscess. APPENDIX: Unremarkable. Normal appendix. PERITONEUM: Unremarkable. No free fluid. No free air. LYMPH NODES: Unremarkable. No enlarged lymph nodes. BLADDER: Unremarkable. REPRODUCTIVE: Status post hysterectomy. BONES: No acute fracture. OTHER FINDINGS: None. IMPRESSION: Extensive sigmoid colon diverticulosis with pericolonic fat infiltration in the pelvis consistent with acute diverticulitis. No gross evidence of pneumoperitoneum or abscess. Scribe Attestation: Documented by Nitesh Kasper, acting as a scribe for Kaylin Lopez MD. Provider Scribe Attestation: All medical record entries made by the Scribe were at my direction and personally dictated by me. I have reviewed the chart and agree that the record accurately reflects my personal performance of the history, physical exam, medical decision making, and the department course for this patient. I have also personally directed, reviewed, and agree with the discharge instructions and disposition. Disposition Discussed With Dr.: Anh Fleming (As per Dr Bland) - Clinical Impression Clinical Impression: UTI (urinary tract infection), Acute diverticulitis - POA Present On Arrival: None - Disposition Disposition: Admitted as In-Patient Disposition Time: 17:00 Condition: FAIR
[2018-05-26] MEDS ORDERED: Piperacillin/Tazobact 3.375 GM in Sodium Chloride 0.9% 100 ML IVPB STA (17:17)
[2018-05-26] MEDS ORDERED: Dextrose 50% SYRINGE Inj (50 ml) IV PRN (18:55)
[2018-05-26] MEDS ORDERED: Glucagon Recombinant 1 mg Inj IM PRN (18:55)
--- NOTE | 2018-05-26 18:57 | CP.PCM.HP ---
<Cain Nash - Last Filed: 05/26/18 19:53> History of Present Illness - History of Present Illness History of Present Illness: Pt is a 77 y/o female with hx of Diverticulosis presenting to ED with 4 days of of worsening lower abdominal pain. Pt was last seen in the office by her PMD, Dr. Bland, 2 days ago who started her on Augement for UTI. She denies fever/chills, flank pain, n/v, dysuria, hematuria, melena or hematochezia. ROS: +Urgency +frequent urination PMD: Dr. Bland PMHX: HTN, DM, Diverticulosis (last Colonoscopy 2016), Breast Ca (s/p resection in 2006), Parathyroid resection PSurgHx: Cholecystectomy, Hysterectomy Drug allergey/adverse rx: Naproxen (GI bleed), Morphine (confusion) FmHx: None Social: Lives in adult home, has homemaker, walks with rolling walker, Denies hx of smoking, alcohol, or illict drug use Present on Admission - Present on Admission Any Indicators Present on Admission: No History of DVT/PE: No History of Uncontrolled Diabetes: No Urinary Catheter: No Decubitus Ulcer Present: No Past Patient History - Past Social History Alcohol: None Drugs: Denies - CARDIAC Hx Hypertension: Yes - NEUROLOGICAL Hx Dizziness: Yes - ENDOCRINE/METABOLIC Hx Diabetes Mellitus Type 2: Yes - MUSCULOSKELETAL/RHEUMATOLOGICAL Hx Arthritis: Yes (left knee) - GASTROINTESTINAL Hx Diverticulitis: Yes - PSYCHIATRIC Hx Substance Use: No - SURGICAL HISTORY Hx Appendectomy: Yes Hx Cholecystectomy: Yes Meds Allergies/Adverse Reactions: Allergies Allergy/AdvReac Type Severity Reaction Status Date / Time naproxen AdvReac bleeding Verified 03/04/17 06:04 NSAIDS (Non-Steroidal AdvReac Bleeding Verified 05/26/18 10:39 Anti-Inflamma Physical Exam - Constitutional Appears: Non-toxic, No Acute Distress - Head Exam Head Exam: NORMAL INSPECTION - Eye Exam Eye Exam: Normal appearance - ENT Exam ENT Exam: Mucous Membranes Moist - Respiratory Exam Respiratory Exam: Clear to Auscultation Bilateral, Rales. absent: Accessory Muscle Use, Wheezes - Cardiovascular Exam Cardiovascular Exam: REGULAR RHYTHM - GI/Abdominal Exam GI & Abdominal Exam: Normal Bowel Sounds, Soft, Tenderness (Marked in left lower quadrant). absent: Distended, Guarding - Extremities Exam Extremities exam: Positive for: normal capillary refill, pedal edema (ankle bilaterally +2), pedal pulses present - Neurological Exam Neurological exam: Alert, Oriented x3 - Psychiatric Exam Psychiatric exam: Normal Affect - Skin Skin Exam: Normal Color Results - Vital Signs Recent Vital Signs: Last Vital Signs Temp 98.1 F 05/26/18 10:16 Pulse 105 H 05/26/18 10:16 Resp 20 05/26/18 10:16 BP 139/78 05/26/18 10:16 Pulse Ox 97 05/26/18 16:46 - Labs Result Diagrams: 05/26/18 12:17 05/26/18 12:17 Labs: Laboratory Results - last 24 hr 05/26/18 05/26/18 05/26/18 10:45 11:50 12:17 WBC 13.5 H D RBC 4.63 Hgb 12.9 Hct 38.2 MCV 82.4 MCH 27.8 MCHC 33.7 RDW 14.5 Plt Count 225 MPV 9.7 Neut % (Auto) 79.6 H Lymph % (Auto) 11.5 L [place] % (Auto) 8.2 Eos % (Auto) 0.2 Baso % (Auto) 0.5 Neut # (Auto) 10.7 H Lymph # (Auto) 1.5 [place] # (Auto) 1.1 H Eos # (Auto) 0.0 Baso # (Auto) 0.1 PT INR APTT Sodium Potassium Chloride Carbon Dioxide Anion Gap BUN Creatinine Est GFR ( Amer) Est GFR (Non-Af Amer) POC Glucose (mg/dL) 276 H Random Glucose Lactic Acid Calcium Total Bilirubin AST ALT Alkaline Phosphatase Total Protein Albumin Globulin Albumin/Globulin Ratio Lipase Urine Color Urine Clarity Urine pH Ur Specific [place] Urine Protein Urine Glucose (UA) Urine Ketones Urine Blood Urine Nitrate Urine Bilirubin Urine Urobilinogen Ur Leukocyte Esterase Urine RBC (Auto) Urine Microscopic WBC Ur Squamous Epith Cells Urine Bacteria Hyaline Casts Blood Type B POSITIVE Antibody Screen Negative BBK History Checked No verified bt 05/26/18 05/26/18 05/26/18 12:17 12:17 12:17 WBC RBC Hgb Hct MCV MCH MCHC RDW Plt Count MPV Neut % (Auto) Lymph % (Auto) [place] % (Auto) Eos % (Auto) Baso % (Auto) Neut # (Auto) Lymph # (Auto) [place] # (Auto) Eos # (Auto) Baso # (Auto) PT 13.1 INR 1.2 APTT 34.2 Sodium 133 Potassium 4.5 Chloride 95 L Carbon Dioxide 22 Anion Gap 21 H BUN 31 H Creatinine 1.3 H Est GFR ( Amer) 48 Est GFR (Non-Af Amer) 40 POC Glucose (mg/dL) Random Glucose 269 H Lactic Acid 1.7 Calcium 9.5 Total Bilirubin 0.7 AST 47 H D ALT 48 Alkaline Phosphatase 136 H Total Protein 8.5 H Albumin 4.1 Globulin 4.4 H Albumin/Globulin Ratio 0.9 L Lipase 67 Urine Color Urine Clarity Urine pH Ur Specific [place] Urine Protein Urine Glucose (UA) Urine Ketones Urine Blood Urine Nitrate Urine Bilirubin Urine Urobilinogen Ur Leukocyte Esterase Urine RBC (Auto) Urine Microscopic WBC Ur Squamous Epith Cells Urine Bacteria Hyaline Casts Blood Type Antibody Screen BBK History Checked 05/26/18 12:17 WBC RBC Hgb Hct MCV MCH MCHC RDW Plt Count MPV Neut % (Auto) Lymph % (Auto) [place] % (Auto) Eos % (Auto) Baso % (Auto) Neut # (Auto) Lymph # (Auto) [place] # (Auto) Eos # (Auto) Baso # (Auto) PT INR APTT Sodium Potassium Chloride Carbon Dioxide Anion Gap BUN Creatinine Est GFR ( Amer) Est GFR (Non-Af Amer) POC Glucose (mg/dL) Random Glucose Lactic Acid Calcium Total Bilirubin AST ALT Alkaline Phosphatase Total Protein Albumin Globulin Albumin/Globulin Ratio Lipase Urine Color Yellow Urine Clarity Cloudy Urine pH 5.0 Ur Specific [place] 1.015 Urine Protein 100 Urine Glucose (UA) Neg Urine Ketones Negative Urine Blood Negative Urine Nitrate Negative Urine Bilirubin Negative Urine Urobilinogen 0.2-1.0 Ur Leukocyte Esterase Small Urine RBC (Auto) 7 H Urine Microscopic WBC 28 H Ur Squamous Epith Cells 8 H Urine Bacteria Rare Hyaline Casts 3-5 H Blood Type Antibody Screen BBK History Checked Assessment & Plan - Assessment and Plan (Free Text) Assessment: Pt is a 77 y/o female with hx of HTN, DM, Hx of Breast CA admitted for Diverticulitis and UTI. #Diverticulitis -Afebrile -WBC 13.5 -C/W Zosyn q8 -Abdomen Pelvis CT: Acute Diverticulitis, No evidence of abscess -Ultram PRN for pain -GI consult, Dr. Hernandes -F/U CBC #UTI -UA +RBC Small LES, Nitrate negative -C.W Zosyn for GNR coverage -F/U Ucx #HTN -Normotensive -C/W with home antihypertensive medications- Norvasc and Losartan -Continue monitoring BP #DM -C/W home meds- glipizide 2.5 -Low dose Sliding Scale -Accuchecks ACHS -Hypoglycemic protocol #CKD -Crea 1.3, GFR 40 (baseline GFR 50-60's) -Avoid nephrotoxic meds -Zosyn is renally dosed -Monitor Crea levels daily #Diet -Soft bland diet -Diabetic #DVT ppx -Encourage ambulation -SCD's for now <Anh Fleming - Last Filed: 05/27/18 16:39> Results - Vital Signs Recent Vital Signs: Last Vital Signs Temp 98.1 F 05/27/18 16:11 Pulse 73 05/27/18 16:11 Resp 20 05/27/18 16:11 BP 147/78 05/27/18 16:11 Pulse Ox 96 05/27/18 16:11 - Labs Result Diagrams: 05/27/18 09:07 05/27/18 09:07 Labs: Laboratory Results - last 24 hr 05/26/18 05/27/18 05/27/18 21:09 05:26 09:07 WBC 9.2 RBC 4.23 Hgb 11.8 L Hct 34.8 MCV 82.2 MCH 27.9 MCHC 34.0 RDW 14.6 H Plt Count 229 Sodium Potassium Chloride Carbon Dioxide Anion Gap BUN Creatinine Est GFR ( Amer) Est GFR (Non-Af Amer) POC Glucose (mg/dL) 206 H 126 H Random Glucose Calcium Total Bilirubin AST ALT Alkaline Phosphatase Total Protein Albumin Globulin Albumin/Globulin Ratio 05/27/18 05/27/18 05/27/18 09:07 10:56 15:33 WBC RBC Hgb Hct MCV MCH MCHC RDW Plt Count Sodium 136 Potassium 4.3 Chloride 100 Carbon Dioxide 24 Anion Gap 16 BUN 25 H Creatinine 1.3 H Est GFR ( Amer) 48 Est GFR (Non-Af Amer) 40 POC Glucose (mg/dL) 147 H 141 H Random Glucose 174 H Calcium 8.4 Total Bilirubin 0.6 AST 34 ALT 44 Alkaline Phosphatase 94 Total Protein 7.3 Albumin 3.5 Globulin 3.8 Albumin/Globulin Ratio 0.9 L Attending/Attestation - Attestation I have personally seen and examined this patient.: Yes I have fully participated in the care of the patient.: Yes I have reviewed all pertinent clinical information: Yes Notes (Text): Acute Diverticulitis UTI OA HTN DM type II - start IV Zosyn - GI consult - Dr Hernandes -Cardio consult - Pain mgt - IVF hydration - Clear liq diet - accucheck with coverage, decrease Glipizide dose to 2.5 mg daily - cont Norvasc. Losartan - Blood and Urine c/ s
[2018-05-26] MEDS: Insulin Regular 100 units/ml SC SCH (21:56)
[2018-05-27] MEDS: Piperacillin/Tazobact 3.375 GM in Sodium Chloride 0.9% 100 ML IVPB SCH ×3 (04:16→21:00)
[2018-05-27] MEDS: Insulin Regular 100 units/ml SC SCH ×4 (07:31→23:40)
[2018-05-27 09:32] LABS: HEMOGLOBIN 11.8 g/dL (12.0-16.0); MEAN CELL VOLUME 82.2 fl (81.0-99.0); MEAN CORPUSCULAR HEMOGLOBIN 27.9 pg (27.0-31.0); RBC 4.23 Mil/uL (3.80-5.20); RED CELL DISTRIBUTION WIDTH 14.6 % (11.5-14.5); WHITE BLOOD COUNT 9.2 K/uL (4.8-10.8)
[2018-05-27 09:46] LABS: ALB/GLOB RATIO 0.9 (1.0-2.1); ALBUMIN 3.5 g/dL (3.5-5.0); CALCIUM 8.4 mg/dL (8.4-10.2)
--- NOTE | 2018-05-27 10:09 | CP.PCM.CON ---
History of Present Illness - History of Present Illness History of Present Illness: THE PATIENT IS A 77 YEAR OLD FEMALE WITH A HISTORY OF HYPERTENSION AND TYPE 2 DM. SHE HAD A RECENT UTI AND WAS TREATED BY DR VASQUEZ AND IMPROVED. LAST WEEK SHE HAD [place] BILATERAL PELVIC PAIN AND CLOUDY URINE AND SHE WAS GIVEN AUGMENTIN FOR AN APPARENT UTI. SHE WENT TO THE ER YESTERDAY AND COMPLAINED OF WORSE PAIN AND AN ABDOMINAL CT WAS DONE THAT SHOWED DIVERTICULOSIS AND DIVERTICULITIS. THE ER PHYSICIAN CALLED ME AND WE DECIDED THAT THE PATIENT WOULD BE BEST ADMITTED BY ADMITTING HER AND TREATING HER WITH IV ANTIBIOTICS. THIS MORNING SHE STATES THE PAIN HAS IMPRIVED SLIGHTLY. Past Patient History - Past Medical History & Family History Past Medical History?: Yes - Past Social History Smoking Status: Never Smoked - CARDIAC Hx Cardiac Disorders: Yes Hx Hypertension: Yes - PULMONARY Hx Respiratory Disorders: No - NEUROLOGICAL Hx Neurological Disorder: Yes Hx Dizziness: Yes - HEENT Hx HEENT Problems: No - RENAL Hx Chronic Kidney Disease: No - ENDOCRINE/METABOLIC Hx Endocrine Disorders: Yes Hx Diabetes Mellitus Type 2: Yes - HEMATOLOGICAL/ONCOLOGICAL Hx Blood Disorders: No Hx Cancer: Yes (right breast ca) - INTEGUMENTARY Hx Dermatological Problems: Yes Other/Comment: Hx of skin cancer as per patient - MUSCULOSKELETAL/RHEUMATOLOGICAL Hx Musculoskeletal Disorders: Yes Hx Arthritis: Yes Hx Falls: No (as per patient, no hx of falls but unsteady gait) Hx Unsteady Gait: Yes - GASTROINTESTINAL Hx Gastrointestinal Disorders: Yes Hx Colitis: Yes Hx Diverticulitis: Yes - GENITOURINARY/GYNECOLOGICAL Hx Genitourinary Disorders: Yes Hx Incontinence: Yes (stress incontinence) - PSYCHIATRIC Hx Psychophysiologic Disorder: No Hx Substance Use: No - SURGICAL HISTORY Hx Surgeries: Yes Hx Appendectomy: Yes Hx Cholecystectomy: Yes Hx Hysterectomy: Yes Other/Comment: Right breast surgery for breast cancer in 2006 - ANESTHESIA Hx Anesthesia: Yes Hx Anesthesia Reactions: No Hx Malignant Hyperthermia: No Meds Allergies/Adverse Reactions: Allergies Allergy/AdvReac Type Severity Reaction Status Date / Time naproxen AdvReac bleeding Verified 03/04/17 06:04 NSAIDS (Non-Steroidal AdvReac Bleeding Verified 05/26/18 10:39 Anti-Inflamma - Medications Medications: Current Medications Amlodipine Besylate (Norvasc) 10 mg PO DAILY RICK Last Admin: 05/27/18 09:06 Dose: 10 mg Dextrose (Dextrose 50% Inj) 0 ml IV STAT PRN; Protocol PRN Reason: Hypoglycemia Protocol Dextrose (Glutose 15) 0 gm PO ONCE PRN; Protocol PRN Reason: Hypoglycemia Protocol Glipizide (Glucotrol) 2.5 mg PO ACB [facility] Last Admin: 05/27/18 09:06 Dose: 2.5 mg Glucagon (Glucagen Diagnostic Kit) 0 mg IM STAT PRN; Protocol PRN Reason: Hypoglycemia Protocol Piperacillin Sod/Tazobactam (Sod 3.375 gm/ Sodium Chloride) 100 mls @ 100 mls/hr IVPB Q8H [facility]; Protocol Last Admin: 05/27/18 04:16 Dose: 100 mls/hr Insulin Human Regular (Humulin R) 0 units SC ACHS [facility]; Protocol Last Admin: 05/27/18 07:31 Dose: Not Given Losartan Potassium (Cozaar) 100 mg PO DAILY [facility] Last Admin: 05/27/18 09:06 Dose: 100 mg Tramadol HCl (Ultram) 50 mg PO Q8 PRN PRN Reason: Pain, moderate (4-7) Last Admin: 05/27/18 09:05 Dose: 50 mg Physical Exam - Respiratory Exam Respiratory Exam: Clear to Auscultation Bilateral - Cardiovascular Exam Cardiovascular Exam: REGULAR RHYTHM, +S1, +S2 - GI/Abdominal Exam Additional comments: MILD BILATERAL PELVIC PAIN AND NOW ALSO WITH LLQ PAIN, BS+ - Extremities Exam Additional comments: NO LE EDEMA - Additional Findings Additional findings: UA WAS CLOUDY WITH SMALL ESTERASE, [address] SCAN C/W DIVERTICULITIS WBC 13.2 Results - Vital Signs Recent Vital Signs: Last Vital Signs Temp 97.8 F 05/27/18 08:12 Pulse 75 05/27/18 09:06 Resp 20 05/27/18 08:12 BP 131/75 05/27/18 09:06 Pulse Ox 96 05/27/18 08:12 - Labs Result Diagrams: 05/27/18 09:07 05/27/18 09:07 Labs: Laboratory Results - last 24 hr 05/26/18 05/26/18 05/26/18 10:45 11:50 12:17 WBC 13.5 H D RBC 4.63 Hgb 12.9 Hct 38.2 MCV 82.4 MCH 27.8 MCHC 33.7 RDW 14.5 Plt Count 225 MPV 9.7 Neut % (Auto) 79.6 H Lymph % (Auto) 11.5 L [place] % (Auto) 8.2 Eos % (Auto) 0.2 Baso % (Auto) 0.5 Neut # (Auto) 10.7 H Lymph # (Auto) 1.5 [place] # (Auto) 1.1 H Eos # (Auto) 0.0 Baso # (Auto) 0.1 PT INR APTT Sodium Potassium Chloride Carbon Dioxide Anion Gap BUN Creatinine Est GFR ( Amer) Est GFR (Non-Af Amer) POC Glucose (mg/dL) 276 H Random Glucose Lactic Acid Calcium Total Bilirubin AST ALT Alkaline Phosphatase Total Protein Albumin Globulin Albumin/Globulin Ratio Lipase Urine Color Urine Clarity Urine pH Ur Specific [place] Urine Protein Urine Glucose (UA) Urine Ketones Urine Blood Urine Nitrate Urine Bilirubin Urine Urobilinogen Ur Leukocyte Esterase Urine RBC (Auto) Urine Microscopic WBC Ur Squamous Epith Cells Urine Bacteria Hyaline Casts Blood Type B POSITIVE Antibody Screen Negative BBK History Checked No verified bt 05/26/18 05/26/18 05/26/18 12:17 12:17 12:17 WBC RBC Hgb Hct MCV MCH MCHC RDW Plt Count MPV Neut % (Auto) Lymph % (Auto) [place] % (Auto) Eos % (Auto) Baso % (Auto) Neut # (Auto) Lymph # (Auto) [place] # (Auto) Eos # (Auto) Baso # (Auto) PT 13.1 INR 1.2 APTT 34.2 Sodium 133 Potassium 4.5 Chloride 95 L Carbon Dioxide 22 Anion Gap 21 H BUN 31 H Creatinine 1.3 H Est GFR ( Amer) 48 Est GFR (Non-Af Amer) 40 POC Glucose (mg/dL) Random Glucose 269 H Lactic Acid 1.7 Calcium 9.5 Total Bilirubin 0.7 AST 47 H D ALT 48 Alkaline Phosphatase 136 H Total Protein 8.5 H Albumin 4.1 Globulin 4.4 H Albumin/Globulin Ratio 0.9 L Lipase 67 Urine Color Urine Clarity Urine pH Ur Specific [place] Urine Protein Urine Glucose (UA) Urine Ketones Urine Blood Urine Nitrate Urine Bilirubin Urine Urobilinogen Ur Leukocyte Esterase Urine RBC (Auto) Urine Microscopic WBC Ur Squamous Epith Cells Urine Bacteria Hyaline Casts Blood Type Antibody Screen BBK History Checked 05/26/18 05/26/18 05/27/18 12:17 21:09 05:26 WBC RBC Hgb Hct MCV MCH MCHC RDW Plt Count MPV Neut % (Auto) Lymph % (Auto) [place] % (Auto) Eos % (Auto) Baso % (Auto) Neut # (Auto) Lymph # (Auto) [place] # (Auto) Eos # (Auto) Baso # (Auto) PT INR APTT Sodium Potassium Chloride Carbon Dioxide Anion Gap BUN Creatinine Est GFR ( Amer) Est GFR (Non-Af Amer) POC Glucose (mg/dL) 206 H 126 H Random Glucose Lactic Acid Calcium Total Bilirubin AST ALT Alkaline Phosphatase Total Protein Albumin Globulin Albumin/Globulin Ratio Lipase Urine Color Yellow Urine Clarity Cloudy Urine pH 5.0 Ur Specific [place] 1.015 Urine Protein 100 Urine Glucose (UA) Neg Urine Ketones Negative Urine Blood Negative Urine Nitrate Negative Urine Bilirubin Negative Urine Urobilinogen 0.2-1.0 Ur Leukocyte Esterase Small Urine RBC (Auto) 7 H Urine Microscopic WBC 28 H Ur Squamous Epith Cells 8 H Urine Bacteria Rare Hyaline Casts 3-5 H Blood Type Antibody Screen BBK History Checked 05/27/18 05/27/18 09:07 09:07 WBC 9.2 RBC 4.23 Hgb 11.8 L Hct 34.8 MCV 82.2 MCH 27.9 MCHC 34.0 RDW 14.6 H Plt Count 229 MPV Neut % (Auto) Lymph % (Auto) [place] % (Auto) Eos % (Auto) Baso % (Auto) Neut # (Auto) Lymph # (Auto) [place] # (Auto) Eos # (Auto) Baso # (Auto) PT INR APTT Sodium 136 Potassium 4.3 Chloride 100 Carbon Dioxide 24 Anion Gap 16 BUN 25 H Creatinine 1.3 H Est GFR ( Amer) 48 Est GFR (Non-Af Amer) 40 POC Glucose (mg/dL) Random Glucose 174 H Lactic Acid Calcium 8.4 Total Bilirubin 0.6 AST 34 ALT 44 Alkaline Phosphatase 94 Total Protein 7.3 Albumin 3.5 Globulin 3.8 Albumin/Globulin Ratio 0.9 L Lipase Urine Color Urine Clarity Urine pH Ur Specific [place] Urine Protein Urine Glucose (UA) Urine Ketones Urine Blood Urine Nitrate Urine Bilirubin Urine Urobilinogen Ur Leukocyte Esterase Urine RBC (Auto) Urine Microscopic WBC Ur Squamous Epith Cells Urine Bacteria Hyaline Casts Blood Type Antibody Screen BBK History Checked Assessment & Plan - Assessment and Plan (Free Text) Assessment: DIVERTICULITIS UTI HYPERTENSION TYPE 2 DM Plan: THE PATIENT WAS ADMITTED AND STARTED ON IV ANTIBIOTICS CONTINUE LOSARTAN, AMLODIPINE AND GLIPIZIDE
--- NOTE | 2018-05-27 10:31 | CP.PCM.PN ---
<Soraya Ashrafekah - Last Filed: 05/27/18 11:23> Subjective - Date & Time of Evaluation Date of Evaluation: 05/27/18 Time of Evaluation: 09:00 - Subjective Subjective: Pt is a 77 yo F with hx of Diverticulosis, HTN, DM, Breast Ca s/p B/L Mastectomy presented to ED with 4 days of of worsening lower abdominal pain. Pt was found to have Diverticulitis and UTI. Today pt reports that her symptoms have improved significantly and reports mild diffuse lower abdominal tenderness controlled with Tramadol. Appetite good. Reports chronic constipation, incontinence. Denies fever,chills, chest pain, SOB, N/V/D, dysuria, hematuria, or frequency. Objective - Vital Signs/Intake and Output Vital Signs (last 24 hours): Temp Pulse Resp BP Pulse Ox 97.8 F 75 20 131/75 96 05/27/18 08:12 05/27/18 09:06 05/27/18 08:12 05/27/18 09:06 05/27/18 08:12 - Medications Medications: Current Medications Amlodipine Besylate (Norvasc) 10 mg PO DAILY [facility] Last Admin: 05/27/18 09:06 Dose: 10 mg Dextrose (Dextrose 50% Inj) 0 ml IV STAT PRN; Protocol PRN Reason: Hypoglycemia Protocol Dextrose (Glutose 15) 0 gm PO ONCE PRN; Protocol PRN Reason: Hypoglycemia Protocol Glipizide (Glucotrol) 2.5 mg PO ACB [facility] Last Admin: 05/27/18 09:06 Dose: 2.5 mg Glucagon (Glucagen Diagnostic Kit) 0 mg IM STAT PRN; Protocol PRN Reason: Hypoglycemia Protocol Piperacillin Sod/Tazobactam (Sod 3.375 gm/ Sodium Chloride) 100 mls @ 100 mls/hr IVPB Q8H [facility]; Protocol Last Admin: 05/27/18 04:16 Dose: 100 mls/hr Insulin Human Regular (Humulin R) 0 units SC ACHS [facility]; Protocol Last Admin: 05/27/18 07:31 Dose: Not Given Losartan Potassium (Cozaar) 100 mg PO DAILY [facility] Last Admin: 05/27/18 09:06 Dose: 100 mg Tramadol HCl (Ultram) 50 mg PO Q8 PRN PRN Reason: Pain, moderate (4-7) Last Admin: 05/27/18 09:05 Dose: 50 mg - Labs Labs: 05/27/18 09:07 05/27/18 09:07 PT 13.1 Seconds (9.8-13.1) 05/26/18 12:17 INR 1.2 05/26/18 12:17 APTT 34.2 Seconds (25.6-37.1) 05/26/18 12:17 - Constitutional Appears: Non-toxic, No Acute Distress - Head Exam Head Exam: ATRAUMATIC, NORMOCEPHALIC - Eye Exam Eye Exam: EOMI - ENT Exam ENT Exam: Mucous Membranes Moist - Respiratory Exam Respiratory Exam: Clear to Ausculation Bilateral, NORMAL BREATHING PATTERN - Cardiovascular Exam Cardiovascular Exam: RRR, +S1, +S2 - GI/Abdominal Exam GI & Abdominal Exam: Soft, Tenderness (to palpation LLQ), Hypoactive Bowel Sounds - Extremities Exam Extremities Exam: Normal Inspection Assessment and Plan - Assessment and Plan (Free Text) Assessment: Pt is a 77 y/o female with hx of Diverticulosis,HTN, DM, Hx of Breast CA s/p B/L mastectomy admitted for Diverticulitis and UTI. #Diverticulitis -Afebrile -WBC now 9.2 -C/W Zosyn q8 (Day 2) -Abdomen Pelvis CT: Acute Diverticulitis, No evidence of abscess or pneumoperitoneum -Ultram PRN for pain -GI consult, Dr. Hernandes F/u reccs -Dr. Bland c/w losartan, amlodipine and glipizide -OT/PT ordered -F/u Blood culture #UTI -UA +RBC Small LES, Nitrate negative -C.W Zosyn for GNR coverage -05/26/18 Urine culture- No growth final #HTN -Normotensive -C/W with home antihypertensive medications- Norvasc and Losartan -Continue monitoring BP #DM -C/W home meds- glipizide 2.5 -Low dose Sliding Scale -Accuchecks ACHS -Hypoglycemic protocol #CKD -Crea 1.3, GFR 40 (baseline GFR 50-60's) -Avoid nephrotoxic meds -Zosyn is renally dosed -Monitor Crea levels daily #Diet -Liquid diet #DVT ppx -Encourage ambulation -SCD's for now Case reviewed and discussed with Dr. Lonnie Ashraf PGY1 <Anh Fleming Shahana - Last Filed: 05/27/18 16:42> Objective - Vital Signs/Intake and Output Vital Signs (last 24 hours): Temp Pulse Resp BP Pulse Ox 98.1 F 73 20 147/78 96 05/27/18 16:11 05/27/18 16:11 05/27/18 16:11 05/27/18 16:11 05/27/18 16:11 - Medications Medications: Current Medications Amlodipine Besylate (Norvasc) 10 mg PO DAILY [facility] Last Admin: 05/27/18 09:06 Dose: 10 mg Dextrose (Dextrose 50% Inj) 0 ml IV STAT PRN; Protocol PRN Reason: Hypoglycemia Protocol Dextrose (Glutose 15) 0 gm PO ONCE PRN; Protocol PRN Reason: Hypoglycemia Protocol Glipizide (Glucotrol) 2.5 mg PO ACB [facility] Last Admin: 05/27/18 09:06 Dose: 2.5 mg Glucagon (Glucagen Diagnostic Kit) 0 mg IM STAT PRN; Protocol PRN Reason: Hypoglycemia Protocol Piperacillin Sod/Tazobactam (Sod 3.375 gm/ Sodium Chloride) 100 mls @ 100 mls/hr IVPB Q8H [facility]; Protocol Last Admin: 05/27/18 13:19 Dose: 100 mls/hr Insulin Human Regular (Humulin R) 0 units SC ACHS [facility]; Protocol Last Admin: 05/27/18 16:01 Dose: Not Given Losartan Potassium (Cozaar) 100 mg PO DAILY [facility] Last Admin: 05/27/18 09:06 Dose: 100 mg Tramadol HCl (Ultram) 50 mg PO Q8 PRN PRN Reason: Pain, moderate (4-7) Last Admin: 05/27/18 09:05 Dose: 50 mg - Labs Labs: 05/27/18 09:07 05/27/18 09:07 PT 13.1 Seconds (9.8-13.1) 05/26/18 12:17 INR 1.2 05/26/18 12:17 APTT 34.2 Seconds (25.6-37.1) 05/26/18 12:17 Attending/Attestation - Attestation I have personally seen and examined this patient.: Yes I have fully participated in the care of the patient.: Yes I have reviewed all pertinent clinical information, including history, physical exam and plan: Yes Notes (Text): 05/27/18 16:40 Acute Diverticulitis UTI OA HTN DM type II Acute Kidney Injury, prob prerenal - cont IV Zosyn - GI consulted - discussed case with Dr Hernandes , cont Liquid diet for now , plan for outpt Colonoscopy in 6 wks -Cardio consulted - Pain mgt - IVF hydration - Clear liq diet - accucheck with coverage, decrease Glipizide dose to 2.5 mg daily - cont Norvasc. Losartan - Blood and Urine c/ s
--- NOTE | 2018-05-27 15:31 | CARD ---
APPROVED REPORT Date of service: 05/27/2018 EKG Measurement Heart [id number] <Conclusion> Normal sinus rhythm Normal ECG
--- NOTE | 2018-05-27 22:13 | CP.PCM.CON ---
History of Present Illness - History of Present Illness History of Present Illness: 77 yo female admitted with lower abdominal pain Has had colonoscopy in the past and had polyps. No fever, chills , nausea and vomiting. Review of Systems - Constitutional Constitutional: absent: Chills - EENT Eyes: absent: Blurred Vision Ears: absent: Ear Pain Nose/Mouth/Throat: absent: Epistaxis - Cardiovascular Cardiovascular: absent: Chest Pain - Respiratory Respiratory: absent: Dyspnea - Gastrointestinal Gastrointestinal: As Per HPI - Genitourinary Genitourinary: absent: Change in Urinary Stream Past Patient History - Past Medical History & Family History Past Medical History?: Yes - Past Social History Smoking Status: Never Smoked - CARDIAC Hx Cardiac Disorders: Yes Hx Hypertension: Yes - PULMONARY Hx Respiratory Disorders: No - NEUROLOGICAL Hx Neurological Disorder: Yes Hx Dizziness: Yes - HEENT Hx HEENT Problems: No - RENAL Hx Chronic Kidney Disease: No - ENDOCRINE/METABOLIC Hx Endocrine Disorders: Yes Hx Diabetes Mellitus Type 2: Yes - HEMATOLOGICAL/ONCOLOGICAL Hx Blood Disorders: No Hx Cancer: Yes (right breast ca) - INTEGUMENTARY Hx Dermatological Problems: Yes Other/Comment: Hx of skin cancer as per patient - MUSCULOSKELETAL/RHEUMATOLOGICAL Hx Musculoskeletal Disorders: Yes Hx Arthritis: Yes Hx Falls: No (as per patient, no hx of falls but unsteady gait) Hx Unsteady Gait: Yes - GASTROINTESTINAL Hx Gastrointestinal Disorders: Yes Hx Colitis: Yes Hx Diverticulitis: Yes - GENITOURINARY/GYNECOLOGICAL Hx Genitourinary Disorders: Yes Hx Incontinence: Yes (stress incontinence) - PSYCHIATRIC Hx Psychophysiologic Disorder: No Hx Substance Use: No - SURGICAL HISTORY Hx Surgeries: Yes Hx Appendectomy: Yes Hx Cholecystectomy: Yes Hx Hysterectomy: Yes Other/Comment: Right breast surgery for breast cancer in 2006 - ANESTHESIA Hx Anesthesia: Yes Hx Anesthesia Reactions: No Hx Malignant Hyperthermia: No Meds Allergies/Adverse Reactions: Allergies Allergy/AdvReac Type Severity Reaction Status Date / Time naproxen AdvReac bleeding Verified 03/04/17 06:04 NSAIDS (Non-Steroidal AdvReac Bleeding Verified 05/26/18 10:39 Anti-Inflamma - Medications Medications: Current Medications Amlodipine Besylate (Norvasc) 10 mg PO DAILY [facility] Last Admin: 05/27/18 09:06 Dose: 10 mg Dextrose (Dextrose 50% Inj) 0 ml IV STAT PRN; Protocol PRN Reason: Hypoglycemia Protocol Dextrose (Glutose 15) 0 gm PO ONCE PRN; Protocol PRN Reason: Hypoglycemia Protocol Glipizide (Glucotrol) 2.5 mg PO ACB [facility] Last Admin: 05/27/18 09:06 Dose: 2.5 mg Glucagon (Glucagen Diagnostic Kit) 0 mg IM STAT PRN; Protocol PRN Reason: Hypoglycemia Protocol Piperacillin Sod/Tazobactam (Sod 3.375 gm/ Sodium Chloride) 100 mls @ 100 mls/hr IVPB Q8H [facility]; Protocol Last Admin: 05/27/18 21:00 Dose: 100 mls/hr Insulin Human Regular (Humulin R) 0 units SC ACHS [facility]; Protocol Last Admin: 05/27/18 16:01 Dose: Not Given Losartan Potassium (Cozaar) 100 mg PO DAILY [facility] Last Admin: 05/27/18 09:06 Dose: 100 mg Tramadol HCl (Ultram) 50 mg PO Q8 PRN PRN Reason: Pain, moderate (4-7) Last Admin: 05/27/18 20:59 Dose: 50 mg Physical Exam - Constitutional Appears: No Acute Distress - Head Exam Head Exam: NORMAL INSPECTION - Eye Exam Eye Exam: Normal appearance, PERRL - ENT Exam ENT Exam: Normal Exam - Neck Exam Neck exam: Positive for: Normal Inspection - Respiratory Exam Respiratory Exam: Clear to Auscultation Bilateral - Cardiovascular Exam Cardiovascular Exam: REGULAR RHYTHM, +S1, +S2 - GI/Abdominal Exam GI & Abdominal Exam: Normal Bowel Sounds, Soft, Tenderness Additional comments: Mild LLQ tenderness Results - Vital Signs Recent Vital Signs: Last Vital Signs Temp 98.1 F 05/27/18 16:11 Pulse 73 05/27/18 16:11 Resp 20 05/27/18 16:11 BP 147/78 05/27/18 16:11 Pulse Ox 96 05/27/18 16:11 - Labs Result Diagrams: 05/27/18 09:07 05/27/18 09:07 Labs: Laboratory Results - last 24 hr 05/27/18 05/27/18 05/27/18 05:26 09:07 09:07 WBC 9.2 RBC 4.23 Hgb 11.8 L Hct 34.8 MCV 82.2 MCH 27.9 MCHC 34.0 RDW 14.6 H Plt Count 229 Sodium 136 Potassium 4.3 Chloride 100 Carbon Dioxide 24 Anion Gap 16 BUN 25 H Creatinine 1.3 H Est GFR ( Amer) 48 Est GFR (Non-Af Amer) 40 POC Glucose (mg/dL) 126 H Random Glucose 174 H Calcium 8.4 Total Bilirubin 0.6 AST 34 ALT 44 Alkaline Phosphatase 94 Total Protein 7.3 Albumin 3.5 Globulin 3.8 Albumin/Globulin Ratio 0.9 L 05/27/18 05/27/18 05/27/18 10:56 15:33 21:47 WBC RBC Hgb Hct MCV MCH MCHC RDW Plt Count Sodium Potassium Chloride Carbon Dioxide Anion Gap BUN Creatinine Est GFR ( Amer) Est GFR (Non-Af Amer) POC Glucose (mg/dL) 147 H 141 H 125 H Random Glucose Calcium Total Bilirubin AST ALT Alkaline Phosphatase Total Protein Albumin Globulin Albumin/Globulin Ratio - Imaging and Cardiology CT scan - abdomen Status: Image reviewed by me, Report reviewed by me Assessment & Plan (1) Acute diverticulitis Assessment and Plan: Patient improving with IV abx. Tolerating clear liquids. Continue IV abx adeel advance diet as tolerated.. No colonoscopy needed during this admission. Status: Acute
[2018-05-28] MEDS: Piperacillin/Tazobact 3.375 GM in Sodium Chloride 0.9% 100 ML IVPB SCH ×3 (04:27→22:14)
[2018-05-28 05:58] LABS: BASO # 0.1 K/uL (0.0-0.2); BASO % 0.9 % (0.0-2.0); EOS # 0.2 K/uL (0.0-0.7); EOS % 2.7 % (0.0-4.0); LYMPH # 1.8 K/uL (1.0-4.3); LYMPH % 23.1 % (20.0-40.0); MEAN CELL VOLUME 82.1 fl (81.0-99.0); MEAN CORPUSCULAR HEMOGLOBIN 28.3 pg (27.0-31.0); MEAN CORPUSCULAR HGB CONC 34.5 g/dL (33.0-37.0); MONO # 0.8 K/uL (0.0-0.8); MONO % 10.1 % (0.0-10.0); NEUT # 4.9 K/uL (1.8-7.0); NEUT % 63.2 % (50.0-75.0); RBC 3.88 Mil/uL (3.80-5.20); RED CELL DISTRIBUTION WIDTH 14.2 % (11.5-14.5); WHITE BLOOD COUNT 7.8 K/uL (4.8-10.8)
[2018-05-28 06:01] LABS: CALCIUM 8.1 mg/dL (8.4-10.2)
[2018-05-28] MEDS ORDERED: Sodium Chloride 0.9% 1,000 ML IV SCH (09:15)
--- NOTE | 2018-05-28 09:37 | CP.PCM.PN ---
<RoselviaKatja zamarripa - Last Filed: 05/28/18 10:57> Subjective - Date & Time of Evaluation Date of Evaluation: 05/28/18 Time of Evaluation: 09:00 - Subjective Subjective: Pt is a 77 yo F with hx of Diverticulosis, HTN, DM, Breast Ca s/p B/L Mastectomy admitted due to Diverticulitis and UTI. Today pt reports that her symptoms have improved since yesterday, still has mild diffuse lower abdominal pain on liquid diet controlled with Tramadol. Reports urinary frequency. Denies fever,chills, chest pain, SOB, N/V/D, dysuria, hematuria, or hematochezia. Appetite good. Reports chronic constipation. Objective - Vital Signs/Intake and Output Vital Signs (last 24 hours): Temp Pulse Resp BP Pulse Ox 98.2 F 80 20 147/64 97 05/28/18 08:25 05/28/18 08:25 05/28/18 08:25 05/28/18 08:25 05/28/18 08:25 - Medications Medications: Current Medications Amlodipine Besylate (Norvasc) 10 mg PO DAILY [facility] Last Admin: 05/27/18 09:06 Dose: 10 mg Dextrose (Dextrose 50% Inj) 0 ml IV STAT PRN; Protocol PRN Reason: Hypoglycemia Protocol Dextrose (Glutose 15) 0 gm PO ONCE PRN; Protocol PRN Reason: Hypoglycemia Protocol Glipizide (Glucotrol) 2.5 mg PO ACB [facility] Last Admin: 05/27/18 09:06 Dose: 2.5 mg Glucagon (Glucagen Diagnostic Kit) 0 mg IM STAT PRN; Protocol PRN Reason: Hypoglycemia Protocol Piperacillin Sod/Tazobactam (Sod 3.375 gm/ Sodium Chloride) 100 mls @ 100 mls/hr IVPB Q8H [facility]; Protocol Last Admin: 05/28/18 04:27 Dose: 100 mls/hr Sodium Chloride (Sodium Chloride 0.9%) 500 mls @ 125 mls/hr IV .Q4H [facility] Insulin Human Regular (Humulin R) 0 units SC ACHS [facility]; Protocol Last Admin: 05/27/18 23:40 Dose: Not Given Losartan Potassium (Cozaar) 100 mg PO DAILY [facility] Last Admin: 05/27/18 09:06 Dose: 100 mg Tramadol HCl (Ultram) 50 mg PO Q8 PRN PRN Reason: Pain, moderate (4-7) Last Admin: 05/27/18 20:59 Dose: 50 mg - Labs Labs: 05/28/18 04:19 05/28/18 04:19 PT 13.1 Seconds (9.8-13.1) 05/26/18 12:17 INR 1.2 05/26/18 12:17 APTT 34.2 Seconds (25.6-37.1) 05/26/18 12:17 - Constitutional Appears: Non-toxic, No Acute Distress - Head Exam Head Exam: ATRAUMATIC, NORMAL INSPECTION, NORMOCEPHALIC - Eye Exam Eye Exam: EOMI - ENT Exam ENT Exam: Mucous Membranes Moist - Respiratory Exam Respiratory Exam: Clear to Ausculation Bilateral, NORMAL BREATHING PATTERN - Cardiovascular Exam Cardiovascular Exam: RRR, +S1, +S2 - GI/Abdominal Exam GI & Abdominal Exam: Soft, Tenderness (Mild LLQ), Normal Bowel Sounds - Extremities Exam Extremities Exam: Normal Inspection Assessment and Plan - Assessment and Plan (Free Text) Assessment: Pt is a 77 y/o female with hx of Diverticulosis, HTN, DM, Hx of Breast CA s/p B/L mastectomy admitted for Diverticulitis and UTI. #Diverticulitis -Afebrile -WBC 7.8 -C/W Zosyn q8 (Day 3) -Abdomen Pelvis CT: Acute Diverticulitis, No evidence of abscess or pneumoperitoneum -Ultram PRN for pain -GI consult, Dr. Hernandes recs appreciated -Dr. Bland c/w losartan, amlodipine and glipizide -OT/PT ordered -Blood cx no growth @24hrs prelim-f/u final #UTI -UA +RBC Small LES, Nitrate negative -C.W Zosyn for GNR coverage -05/26/18 Urine culture- No growth final #HTN -Normotensive -C/W with home antihypertensive medications- Norvasc and Losartan -Continue monitoring BP #DM -C/W home meds- glipizide 2.5 -Low dose Sliding Scale -Accuchecks ACHS -Hypoglycemic protocol #CKD -Crea 1.3, GFR 40 (baseline GFR 50-60's) -Avoid nephrotoxic meds -Zosyn is renally dosed -Monitor Crea levels daily #Diet -Liquid diet #DVT ppx -Encourage ambulation -SCD's for now Case reviewed and discussed with Dr. Xavier Ashraf PGY1 <Vicki Park - Last Filed: 05/29/18 11:40> Objective - Vital Signs/Intake and Output Vital Signs (last 24 hours): Temp Pulse Resp BP Pulse Ox 97.8 F 74 19 144/81 98 05/29/18 08:30 05/29/18 08:30 05/29/18 08:30 05/29/18 08:30 05/29/18 08:30 - Labs Labs: 05/29/18 05:40 05/29/18 05:40 PT 13.1 Seconds (9.8-13.1) 05/26/18 12:17 INR 1.2 05/26/18 12:17 APTT 34.2 Seconds (25.6-37.1) 05/26/18 12:17 Attending/Attestation - Attestation I have personally seen and examined this patient.: Yes I have fully participated in the care of the patient.: Yes I have reviewed all pertinent clinical information, including history, physical exam and plan: Yes Notes (Text): 05/29/18 11:40 agree with findings and plan as above.
--- NOTE | 2018-05-28 10:28 | CP.PCM.PN ---
Subjective - Date & Time of Evaluation Date of Evaluation: 05/28/18 Time of Evaluation: 09:30 - Subjective Subjective: FEELS A LITTLE BETTER TODAY LESS PELVIC PAIN AND LLQ ABDOMINAL AREA IS STILL PAINFUL BUT LESS THAN YESTERDAY NO FEVERS OR CHILLS Objective - Vital Signs/Intake and Output Vital Signs (last 24 hours): Temp Pulse Resp BP Pulse Ox 98.2 F 80 20 147/64 97 05/28/18 08:25 05/28/18 08:25 05/28/18 08:25 05/28/18 09:41 05/28/18 08:25 - Medications Medications: Current Medications Amlodipine Besylate (Norvasc) 10 mg PO DAILY [facility] Last Admin: 05/28/18 09:41 Dose: 10 mg Dextrose (Dextrose 50% Inj) 0 ml IV STAT PRN; Protocol PRN Reason: Hypoglycemia Protocol Dextrose (Glutose 15) 0 gm PO ONCE PRN; Protocol PRN Reason: Hypoglycemia Protocol Glipizide (Glucotrol) 2.5 mg PO ACB [facility] Last Admin: 05/28/18 09:42 Dose: 2.5 mg Glucagon (Glucagen Diagnostic Kit) 0 mg IM STAT PRN; Protocol PRN Reason: Hypoglycemia Protocol Piperacillin Sod/Tazobactam (Sod 3.375 gm/ Sodium Chloride) 100 mls @ 100 mls /hr IVPB Q8H [facility]; Protocol Last Admin: 05/28/18 04:27 Dose: 100 mls/hr Sodium Chloride (Sodium Chloride 0.9%) 500 mls @ 125 mls/hr IV .Q4H [facility] Insulin Human Regular (Humulin R) 0 units SC ACHS [facility]; Protocol Last Admin: 05/27/18 23:40 Dose: Not Given Losartan Potassium (Cozaar) 100 mg PO DAILY [facility] Last Admin: 05/28/18 09:43 Dose: 100 mg Tramadol HCl (Ultram) 50 mg PO Q8 PRN PRN Reason: Pain, moderate (4-7) Last Admin: 05/27/18 20:59 Dose: 50 mg - Labs Labs: 05/28/18 04:19 05/28/18 04:19 PT 13.1 Seconds (9.8-13.1) 05/26/18 12:17 INR 1.2 05/26/18 12:17 APTT 34.2 Seconds (25.6-37.1) 05/26/18 12:17 - Respiratory Exam Respiratory Exam: Clear to Ausculation Bilateral - Cardiovascular Exam Cardiovascular Exam: REGULAR RHYTHM, +S1, +S2 - GI/Abdominal Exam Additional comments: LLQ TENDERNESS - Extremities Exam Additional comments: NO SIGNIFICANT LE EDEMA - Additional Findings Additional findings: WBC DECREASED TO 7.8 GLUCOSE 108 GI CONSULT REVIEWED Assessment and Plan - Assessment and Plan (Free Text) Assessment: DIVERTICULITIS UTI HYPERTENSION TYPE 2 DM Plan: CONTINUE IV ANTIBIOTICS, LOSARTAN, AMLODIPINE AND GLIPIZIDE
[2018-05-28] MEDS: Insulin Regular 100 units/ml SC SCH ×4 (13:37→22:21)
--- NOTE | 2018-05-28 21:09 | CP.PCM.PN ---
Subjective - Date & Time of Evaluation Date of Evaluation: 05/28/18 Time of Evaluation: 09:00 - Subjective Subjective: Denies abdominal pain and feeling stronger. Objective - Vital Signs/Intake and Output Vital Signs (last 24 hours): Temp Pulse Resp BP Pulse Ox 98.9 F 74 20 132/78 97 05/28/18 16:49 05/28/18 16:49 05/28/18 16:49 05/28/18 16:49 05/28/18 16:49 - Medications Medications: Current Medications Amlodipine Besylate (Norvasc) 10 mg PO DAILY [facility] Last Admin: 05/28/18 09:41 Dose: 10 mg Aspirin (Ecotrin) 81 mg PO DAILY [facility] Last Admin: 05/28/18 13:59 Dose: 81 mg Dextrose (Dextrose 50% Inj) 0 ml IV STAT PRN; Protocol PRN Reason: Hypoglycemia Protocol Dextrose (Glutose 15) 0 gm PO ONCE PRN; Protocol PRN Reason: Hypoglycemia Protocol Glipizide (Glucotrol) 2.5 mg PO ACB [facility] Last Admin: 05/28/18 09:42 Dose: 2.5 mg Glucagon (Glucagen Diagnostic Kit) 0 mg IM STAT PRN; Protocol PRN Reason: Hypoglycemia Protocol Piperacillin Sod/Tazobactam (Sod 3.375 gm/ Sodium Chloride) 100 mls @ 100 mls/hr IVPB Q8H [facility]; Protocol Last Admin: 05/28/18 13:54 Dose: 100 mls/hr Sodium Chloride (Sodium Chloride 0.9%) 500 mls @ 125 mls/hr IV .Q4H [facility] Insulin Human Regular (Humulin R) 0 units SC ACHS [facility]; Protocol Last Admin: 05/28/18 17:58 Dose: Not Given Losartan Potassium (Cozaar) 100 mg PO DAILY [facility] Last Admin: 05/28/18 09:43 Dose: 100 mg Meclizine HCl (Antivert) 25 mg PO BID [facility] Last Admin: 05/28/18 19:52 Dose: 25 mg Tramadol HCl (Ultram) 50 mg PO Q8 PRN PRN Reason: Pain, moderate (4-7) Last Admin: 05/27/18 20:59 Dose: 50 mg - Labs Labs: 05/28/18 04:19 05/28/18 04:19 PT 13.1 Seconds (9.8-13.1) 05/26/18 12:17 INR 1.2 05/26/18 12:17 APTT 34.2 Seconds (25.6-37.1) 05/26/18 12:17 - Head Exam Head Exam: ATRAUMATIC - Eye Exam Eye Exam: Normal appearance Pupil Exam: PERRL - ENT Exam ENT Exam: Mucous Membranes Moist - Neck Exam Neck Exam: Full ROM - Respiratory Exam Respiratory Exam: Clear to Ausculation Bilateral - Cardiovascular Exam Cardiovascular Exam: REGULAR RHYTHM, +S1, +S2 - GI/Abdominal Exam GI & Abdominal Exam: Soft. absent: Tenderness Assessment and Plan (1) Acute diverticulitis Assessment & Plan: Improving on antibiotics. Advance diet as tolerated. Status: Acute
[2018-05-29] MEDS: Piperacillin/Tazobact 3.375 GM in Sodium Chloride 0.9% 100 ML IVPB SCH (04:22)
[2018-05-29] MEDS: Sodium Chloride 0.9% 500 ML IV SCH ×2 (04:23→09:18)
[2018-05-29] MEDS: Insulin Regular 100 units/ml SC SCH ×2 (06:31→11:30)
[2018-05-29 06:54] LABS: BASO # 0.1 K/uL (0.0-0.2); EOS # 0.2 K/uL (0.0-0.7); EOS % 2.8 % (0.0-4.0); HEMOGLOBIN 11.4 g/dL (12.0-16.0); LYMPH # 1.9 K/uL (1.0-4.3); LYMPH % 24.7 % (20.0-40.0); MEAN CELL VOLUME 82.5 fl (81.0-99.0); MEAN CORPUSCULAR HEMOGLOBIN 28.1 pg (27.0-31.0); MEAN CORPUSCULAR HGB CONC 34.1 g/dL (33.0-37.0); MEAN PLATELET VOLUME 8.8 fl (7.2-11.7); MONO # 0.8 K/uL (0.0-0.8); NEUT # 4.5 K/uL (1.8-7.0); NEUT % 60.5 % (50.0-75.0); RBC 4.06 Mil/uL (3.80-5.20); RED CELL DISTRIBUTION WIDTH 14.4 % (11.5-14.5); WHITE BLOOD COUNT 7.5 K/uL (4.8-10.8)
[2018-05-29 07:15] LABS: CALCIUM 8.4 mg/dL (8.4-10.2)
[2018-05-29 08:31] VITALS: BP 144/81; PULSE 74; RESP 19; TEMP 97.8
--- NOTE | 2018-05-29 10:19 | CP.PCM.DIS ---
<Katja Ashraf - Last Filed: 05/29/18 13:55> Provider - Provider Date of Admission: 05/26/18 17:32 Attending physician: Anh Fleming MD Primary care physician: Dr. Bland Consults: 05/26/18 18:52 Gastroenterology Consult Routine Comment: Consulting Provider: Chemo Hernandes Consulting Physician: Chemo Hernandes Reason for Consult: Diverticulitis Physician Consult Routine Comment: Consulting Provider: Merrill Bland Consulting Physician: Merrill Bland Reason for Consult: Diveticulitis, UTI 05/27/18 03:55 Case Management Referral Routine Comment: Physician Instructions: Reason For Exam: Reason for Referral: Discharge Planning Time Spent in preparation of Discharge (in minutes): 15 Diagnosis - Discharge Diagnosis (1) Acute diverticulitis Status: Acute Comment: Abdominal pain resolved. D/C home on Omnicef 300mg PO BID 10 days and Flagyl 500mg PO Q8H 10 days. F/u with GI Dr. Hernandes for an outpt colonoscopy in 6 weeks. F/u with PMD Dr. Bland in 1 week. C/w low fiber diabetic diet (2) UTI (urinary tract infection) Status: Acute Comment: Urine cx negative. D/C home on Omnicef 300mg PO BID 10 days (3) Hypertension Status: Acute Comment: chronic controlled. c/w home meds (4) Diabetes Status: Acute Comment: chronic controlled. c/w home meds (5) Vertigo Status: Acute Comment: chronic controlled. c/w home meds Hospital Course - Lab Results Lab Results: Micro Results 05/26/18 15:24 Blood-Venous Blood Culture - Preliminary NO GROWTH AFTER 48 HOURS 05/26/18 12:17 Urine,Clean Catch Urine Culture - Final No Growth (<1,000 CFU/ML) Most Recent Lab Values WBC 7.5 K/uL (4.8-10.8) 05/29/18 05:40 RBC 4.06 Mil/uL (3.80-5.20) 05/29/18 05:40 Hgb 11.4 g/dL (12.0-16.0) L 05/29/18 05:40 Hct 33.5 % (34.0-47.0) L 05/29/18 05:40 MCV 82.5 fl (81.0-99.0) 05/29/18 05:40 MCH 28.1 pg (27.0-31.0) 05/29/18 05:40 MCHC 34.1 g/dL (33.0-37.0) 05/29/18 05:40 RDW 14.4 % (11.5-14.5) 05/29/18 05:40 Plt Count 211 K/uL (130-400) 05/29/18 05:40 MPV 8.8 fl (7.2-11.7) 05/29/18 05:40 Neut % (Auto) 60.5 % (50.0-75.0) 05/29/18 05:40 Lymph % (Auto) 24.7 % (20.0-40.0) 05/29/18 05:40 [place] % (Auto) 11.0 % (0.0-10.0) H 05/29/18 05:40 Eos % (Auto) 2.8 % (0.0-4.0) 05/29/18 05:40 Baso % (Auto) 1.0 % (0.0-2.0) 05/29/18 05:40 Neut # (Auto) 4.5 K/uL (1.8-7.0) 05/29/18 05:40 Lymph # (Auto) 1.9 K/uL (1.0-4.3) 05/29/18 05:40 [place] # (Auto) 0.8 K/uL (0.0-0.8) 05/29/18 05:40 Eos # (Auto) 0.2 K/uL (0.0-0.7) 05/29/18 05:40 Baso # (Auto) 0.1 K/uL (0.0-0.2) 05/29/18 05:40 PT 13.1 Seconds (9.8-13.1) 05/26/18 12:17 INR 1.2 05/26/18 12:17 APTT 34.2 Seconds (25.6-37.1) 05/26/18 12:17 Sodium 140 mmol/l (132-148) 05/29/18 05:40 Potassium 4.6 MMOL/L (3.6-5.0) 05/29/18 05:40 Chloride 105 mmol/L (98-107) 05/29/18 05:40 Carbon Dioxide 25 mmol/L (22-30) 05/29/18 05:40 Anion Gap 15 (10-20) 05/29/18 05:40 BUN 17 mg/dl (7-17) 05/29/18 05:40 Creatinine 1.2 mg/dl (0.7-1.2) 05/29/18 05:40 Est GFR ( Amer) 53 05/29/18 05:40 Est GFR (Non-Af Amer) 44 05/29/18 05:40 POC Glucose (mg/dL) 108 mg/dL (65-110) 05/29/18 05:29 Random Glucose 122 mg/dL (65-105) H 05/29/18 05:40 Lactic Acid 1.7 mmol/L (0.7-2.1) 05/26/18 12:17 Calcium 8.4 mg/dL (8.4-10.2) 05/29/18 05:40 Total Bilirubin 0.6 mg/dl (0.2-1.3) 05/27/18 09:07 AST 34 U/L (14-36) 05/27/18 09:07 ALT 44 U/L (9-52) 05/27/18 09:07 Alkaline Phosphatase 94 U/L (38-126) 05/27/18 09:07 Total Protein 7.3 G/DL (6.3-8.2) 05/27/18 09:07 Albumin 3.5 g/dL (3.5-5.0) 05/27/18 09:07 Globulin 3.8 gm/dL (2.2-3.9) 05/27/18 09:07 Albumin/Globulin Ratio 0.9 (1.0-2.1) L 05/27/18 09:07 Lipase 67 U/L (23-300) 05/26/18 12:17 Urine Color Yellow (YELLOW) 05/26/18 12:17 Urine Clarity Cloudy (Clear) 05/26/18 12:17 Urine pH 5.0 (5.0-8.0) 05/26/18 12:17 Ur Specific [place] 1.015 (1.003-1.030) 05/26/18 12:17 Urine Protein 100 mg/dL (NEGATIVE) 05/26/18 12:17 Urine Glucose (UA) Neg mg/dL (NEGATIVE) 05/26/18 12:17 Urine Ketones Negative mg/dL (NEGATIVE) 05/26/18 12:17 Urine Blood Negative (NEGATIVE) 05/26/18 12:17 Urine Nitrate Negative (NEGATIVE) 05/26/18 12:17 Urine Bilirubin Negative (NEGATIVE) 05/26/18 12:17 Urine Urobilinogen 0.2-1.0 mg/dL (0.2-1.0) 05/26/18 12:17 Ur Leukocyte Esterase Small [place]deep/uL (Negative) 05/26/18 12:17 Urine RBC (Auto) 7 /hpf (0-3) H 05/26/18 12:17 Urine Microscopic WBC 28 /hpf (0-5) H 05/26/18 12:17 Ur Squamous Epith Cells 8 /hpf (0-5) H 05/26/18 12:17 Urine Bacteria Rare (<OCC) 05/26/18 12:17 Hyaline Casts 3-5 /hpf (0-2) H 05/26/18 12:17 Blood Type B POSITIVE 05/26/18 11:50 Blood Type Confirm B POSITIVE 05/27/18 21:43 Antibody Screen Negative 05/26/18 11:50 BBK History Checked No verified bt 05/26/18 11:50 - Hospital Course Hospital Course: Pt is a 77 yo F with hx of Diverticulosis, HTN, DM, Breast Ca s/p B/L Mastectomy presented to ED on 05/26/18 due to worsening lower abdominal pain for 4 days after recently being diagnosed with UTI outpt was on Augmentin. Pt was admitted for first episode of Diverticulitis as well as UTI. Abdomen Pelvis CT: Acute Diverticulitis, No evidence of abscess or pneumoperitoneum. UA +RBC Small LES, Nitrate negative Urine cx negative, Pt received Zosyn 4 days, GI Dr Hernandes and PMD Dr Bland were consulted. Today pt reports that her abdominal pain has resolved. She has been able to tolerate diet without pain. Denies fever,chills, chest pain, SOB, N/V/D/C, dysuria, hematuria, or hematochezia. Appetite good. Pt is hemodynamically stable for D/C on PO antibiotics (Cefdinir and Flagyl for 10 days) and low fiber diet with outpt follow up with GI for a colonoscopy in 6 weeks and PMD in 1 week. - Date & Time of H&P Date of H&P: 05/26/18 Time of H&P: 18:57 Discharge Exam - Head Exam Head Exam: ATRAUMATIC, NORMAL INSPECTION, NORMOCEPHALIC - Eye Exam Eye Exam: EOMI - ENT Exam ENT Exam: Mucous Membranes Moist - Respiratory Exam Respiratory Exam: Clear to PA & Lateral, NORMAL BREATHING PATTERN. absent: Rales, Rhonchi, Wheezes - Cardiovascular Exam Cardiovascular Exam: RRR, +S1, +S2 - GI/Abdominal Exam GI & Abdominal Exam: Normal Bowel Sounds. absent: Tenderness - Extremities Exam Extremities exam: normal inspection - Back Exam Back exam: absent: CVA tenderness (L), CVA tenderness (R) - Neurological Exam Neurological exam: Alert, Oriented x3 Discharge Plan - Discharge Medications Prescriptions: Cefdinir [Omnicef] 300 mg PO BID 10 Days #20 cap metroNIDAZOLE [Flagyl] 500 mg PO Q8H 10 Days #30 tab - Follow Up Plan Condition: FAIR Disposition: HOME/ ROUTINE Patient education suggested?: Yes Instructions: Low Fiber Diet, Diverticulitis (DC), Urinary Tract Infection, Adult (DC) Additional Instructions: follow up with primary MD and GI MD 1 week Referrals: Merrill Bland MD [Family Provider] - Chemo Hernandes MD [Staff Provider] - <Anh Fleming - Last Filed: 05/29/18 17:46> Provider - Provider Date of Admission: 05/26/18 17:32 Attending physician: Anh Fleming MD Consults: 05/26/18 18:52 Gastroenterology Consult Routine Comment: Consulting Provider: Chemo Hernandes Consulting Physician: Chemo Hernandes Reason for Consult: Diverticulitis Physician Consult Routine Comment: Consulting Provider: Merrill Bland Consulting Physician: Merrill Bland Reason for Consult: Diveticulitis, UTI 05/27/18 03:55 Case Management Referral Routine Comment: Physician Instructions: Reason For Exam: Reason for Referral: Discharge Planning Hospital Course - Lab Results Lab Results: Micro Results 05/26/18 15:24 Blood-Venous Blood Culture - Preliminary NO GROWTH AFTER 3 DAYS 05/26/18 12:17 Urine,Clean Catch Urine Culture - Final No Growth (<1,000 CFU/ML) Most Recent Lab Values WBC 7.5 K/uL (4.8-10.8) 05/29/18 05:40 RBC 4.06 Mil/uL (3.80-5.20) 05/29/18 05:40 Hgb 11.4 g/dL (12.0-16.0) L 05/29/18 05:40 Hct 33.5 % (34.0-47.0) L 05/29/18 05:40 MCV 82.5 fl (81.0-99.0) 05/29/18 05:40 MCH 28.1 pg (27.0-31.0) 05/29/18 05:40 MCHC 34.1 g/dL (33.0-37.0) 05/29/18 05:40 RDW 14.4 % (11.5-14.5) 05/29/18 05:40 Plt Count 211 K/uL (130-400) 05/29/18 05:40 MPV 8.8 fl (7.2-11.7) 05/29/18 05:40 Neut % (Auto) 60.5 % (50.0-75.0) 05/29/18 05:40 Lymph % (Auto) 24.7 % (20.0-40.0) 05/29/18 05:40 [place] % (Auto) 11.0 % (0.0-10.0) H 05/29/18 05:40 Eos % (Auto) 2.8 % (0.0-4.0) 05/29/18 05:40 Baso % (Auto) 1.0 % (0.0-2.0) 05/29/18 05:40 Neut # (Auto) 4.5 K/uL (1.8-7.0) 05/29/18 05:40 Lymph # (Auto) 1.9 K/uL (1.0-4.3) 05/29/18 05:40 [place] # (Auto) 0.8 K/uL (0.0-0.8) 05/29/18 05:40 Eos # (Auto) 0.2 K/uL (0.0-0.7) 05/29/18 05:40 Baso # (Auto) 0.1 K/uL (0.0-0.2) 05/29/18 05:40 PT 13.1 Seconds (9.8-13.1) 05/26/18 12:17 INR 1.2 05/26/18 12:17 APTT 34.2 Seconds (25.6-37.1) 05/26/18 12:17 Sodium 140 mmol/l (132-148) 05/29/18 05:40 Potassium 4.6 MMOL/L (3.6-5.0) 05/29/18 05:40 Chloride 105 mmol/L (98-107) 05/29/18 05:40 Carbon Dioxide 25 mmol/L (22-30) 05/29/18 05:40 Anion Gap 15 (10-20) 05/29/18 05:40 BUN 17 mg/dl (7-17) 05/29/18 05:40 Creatinine 1.2 mg/dl (0.7-1.2) 05/29/18 05:40 Est GFR ( Amer) 53 05/29/18 05:40 Est GFR (Non-Af Amer) 44 05/29/18 05:40 POC Glucose (mg/dL) 108 mg/dL (65-110) 05/29/18 05:29 Random Glucose 122 mg/dL (65-105) H 05/29/18 05:40 Lactic Acid 1.7 mmol/L (0.7-2.1) 05/26/18 12:17 Calcium 8.4 mg/dL (8.4-10.2) 05/29/18 05:40 Total Bilirubin 0.6 mg/dl (0.2-1.3) 05/27/18 09:07 AST 34 U/L (14-36) 05/27/18 09:07 ALT 44 U/L (9-52) 05/27/18 09:07 Alkaline Phosphatase 94 U/L (38-126) 05/27/18 09:07 Total Protein 7.3 G/DL (6.3-8.2) 05/27/18 09:07 Albumin 3.5 g/dL (3.5-5.0) 05/27/18 09:07 Globulin 3.8 gm/dL (2.2-3.9) 05/27/18 09:07 Albumin/Globulin Ratio 0.9 (1.0-2.1) L 05/27/18 09:07 Lipase 67 U/L (23-300) 05/26/18 12:17 Urine Color Yellow (YELLOW) 05/26/18 12:17 Urine Clarity Cloudy (Clear) 05/26/18 12:17 Urine pH 5.0 (5.0-8.0) 05/26/18 12:17 Ur Specific [place] 1.015 (1.003-1.030) 05/26/18 12:17 Urine Protein 100 mg/dL (NEGATIVE) 05/26/18 12:17 Urine Glucose (UA) Neg mg/dL (NEGATIVE) 05/26/18 12:17 Urine Ketones Negative mg/dL (NEGATIVE) 05/26/18 12:17 Urine Blood Negative (NEGATIVE) 05/26/18 12:17 Urine Nitrate Negative (NEGATIVE) 05/26/18 12:17 Urine Bilirubin Negative (NEGATIVE) 05/26/18 12:17 Urine Urobilinogen 0.2-1.0 mg/dL (0.2-1.0) 05/26/18 12:17 Ur Leukocyte Esterase Small [place]/uL (Negative) 05/26/18 12:17 Urine RBC (Auto) 7 /hpf (0-3) H 05/26/18 12:17 Urine Microscopic WBC 28 /hpf (0-5) H 05/26/18 12:17 Ur Squamous Epith Cells 8 /hpf (0-5) H 05/26/18 12:17 Urine Bacteria Rare (<OCC) 05/26/18 12:17 Hyaline Casts 3-5 /hpf (0-2) H 05/26/18 12:17 Blood Type B POSITIVE 05/26/18 11:50 Blood Type Confirm B POSITIVE 05/27/18 21:43 Antibody Screen Negative 05/26/18 11:50 BBK History Checked No verified bt 05/26/18 11:50 Attending/Attestation - Attestation I have personally seen and examined this patient.: Yes I have fully participated in the care of the patient.: Yes I have reviewed all pertinent clinical information, including history, physical exam and plan: Yes Notes (Text): Acute Diverticulitis - pain now resolved - leukocytosis resolved, no fever - Pt received IV Zosyn - GI consulted- plan for Outpt Colonoscopy in 6 wks - will d/c pt on PO Omnicef and FLagyl
--- NOTE | 2018-05-29 11:03 | CP.PCM.PN ---
Subjective - Date & Time of Evaluation Date of Evaluation: 05/29/18 Time of Evaluation: 10:30 - Subjective Subjective: NO ABDOMINAL PAIN Objective - Vital Signs/Intake and Output Vital Signs (last 24 hours): Temp Pulse Resp BP Pulse Ox 97.8 F 74 19 144/81 98 05/29/18 08:30 05/29/18 08:30 05/29/18 08:30 05/29/18 08:30 05/29/18 08:30 - Medications Medications: Current Medications Amlodipine Besylate (Norvasc) 10 mg PO DAILY [facility] Last Admin: 05/29/18 09:17 Dose: 10 mg Aspirin (Ecotrin) 81 mg PO DAILY [facility] Last Admin: 05/29/18 09:16 Dose: 81 mg Dextrose (Dextrose 50% Inj) 0 ml IV STAT PRN; Protocol PRN Reason: Hypoglycemia Protocol Dextrose (Glutose 15) 0 gm PO ONCE PRN; Protocol PRN Reason: Hypoglycemia Protocol Glipizide (Glucotrol) 2.5 mg PO ACB [facility] Last Admin: 05/29/18 09:17 Dose: 2.5 mg Glucagon (Glucagen Diagnostic Kit) 0 mg IM STAT PRN; Protocol PRN Reason: Hypoglycemia Protocol Piperacillin Sod/Tazobactam (Sod 3.375 gm/ Sodium Chloride) 100 mls @ 100 mls/hr IVPB Q8H [facility]; Protocol Last Admin: 05/29/18 04:22 Dose: 100 mls/hr Sodium Chloride (Sodium Chloride 0.9%) 500 mls @ 125 mls/hr IV .Q4H [facility] Last Admin: 05/29/18 09:18 Dose: Not Given Insulin Human Regular (Humulin R) 0 units SC ACHS [facility]; Protocol Last Admin: 05/29/18 06:31 Dose: Not Given Losartan Potassium (Cozaar) 100 mg PO DAILY [facility] Last Admin: 05/29/18 09:16 Dose: 100 mg Meclizine HCl (Antivert) 25 mg PO BID [facility] Last Admin: 05/29/18 09:16 Dose: 25 mg Tramadol HCl (Ultram) 50 mg PO Q8 PRN PRN Reason: Pain, moderate (4-7) Last Admin: 05/28/18 22:13 Dose: 50 mg - Labs Labs: 05/29/18 05:40 05/29/18 05:40 PT 13.1 Seconds (9.8-13.1) 05/26/18 12:17 INR 1.2 05/26/18 12:17 APTT 34.2 Seconds (25.6-37.1) 05/26/18 12:17 - Respiratory Exam Respiratory Exam: Clear to Ausculation Bilateral - Cardiovascular Exam Cardiovascular Exam: REGULAR RHYTHM, +S1, +S2 - GI/Abdominal Exam Additional comments: SOFT, BS PRESENT, NON-TENDER - Extremities Exam Additional comments: NO EDEMA OF LE Assessment and Plan - Assessment and Plan (Free Text) Assessment: DIVERTICULITIS UTI HYPERTENSION DM Plan: THE PATIENT WILL BE DISCHARGED TODAY ON ORAL ANTIBIOTICS AND FU WITH GI CONTINUE LOSARTAN, AMLODIPINE AND GLIPIZIDE
--- NOTE | 2018-06-03 11:15 | PQF ---
PROVIDER RESPONSE TEXT: Provider was unable to determine a response for this query. REVIEWER QUERY TEXT: Kidney Disease, Chronic CKD Stage Chronic Kidney Disease (CKD) is documented in the Medical Record. Please specify the disease stage ( includes probable or suspected) Such as: -- Chronic kidney disease Stage 1 -- Chronic kidney disease Stage 2 -- Chronic kidney disease Stage 3 -- Chronic kidney disease Stage 4 -- Chronic kidney disease Stage 5 -- Chronic kidney disease Stage 5, requiring dialysis -- End Stage Renal Disease -- Other, please specify Creatinine: 1.3->1.3 Est GFR ( Amer):48->48->48 Est GFR (Non Afer Amer):40->40->40 H and P includes; #CKD -Crea 1.3, GFR 40 (baseline GFR 50-60's) -Avoid nephrotoxic meds -Zosyn is radha ally dosed -Monitor Crea levels daily Stages are defined by the [employer] as follows: CKD Stage I GFR >= 90 ml / min per 1.73 m2 and persistent albuminuria CKD Stage 2 GFR between 60 and 89 with persistent albuminuria CKD Stage 3 GFR between 30 and 59 CKD Stage 4 GFR between 15 and 29 CKD Stage 5 GFR between <15 or End Stage Renal Disease The patient's Clinical Indicators include: --- Query created by: Viviane Gonsalez on 05/28/2018 12:15 PM Electronically signed by: Vicki Park MD 06/03/2018 11:12 AM
[2018-06-03 11:55] VITALS: O2SAT 97
== END 2018-05-29 11:37 | disposition home health service (06) | DRG 392 ==
LOC: H.ER 09:56 → H.ERHOLD 17:32 → H.MEDSURG1 19:10
PROVIDERS: ADMIT Internal Medicine; ATTEND Internal Medicine
DX: K57.32 Diverticulitis of large intestine without perforation or abscess without bleeding (principal); N39.0 Urinary tract infection, site not specified; N17.9 Acute kidney failure, unspecified; E11.22 Type 2 diabetes mellitus with diabetic chronic kidney disease; I12.9 Hypertensive chronic kidney disease with stage 1 through stage 4 chronic kidney disease, or unspecified chronic kidney disease; N18.9 Chronic kidney disease, unspecified; R32 Unspecified urinary incontinence; K59.09 Other constipation; M17.12 Unilateral primary osteoarthritis, left knee; Z85.3 Personal history of malignant neoplasm of breast; Z85.828 Personal history of other malignant neoplasm of skin; Z90.13 Acquired absence of bilateral breasts and nipples; Z90.710 Acquired absence of both cervix and uterus; Z90.49 Acquired absence of other specified parts of digestive tract; Z79.84 Long term (current) use of oral hypoglycemic drugs

== ENCOUNTER 2018-08-05 07:30 | Day surgery (SDC) | payer MEDICARE, MEDICAID ==
[2018-08-05] MEDS ORDERED: Lactated Ringer's 500 ML IV ONE (07:50)
[2018-08-05 08:03] VITALS: BMI 33.0
[2018-08-05] MEDS ORDERED: Propofol 10 mg/ml Inj (20 ML) ONE (08:59)
[2018-08-05] MEDS ORDERED: Midazolam 2 MG/2 ML VIAL ONE (08:59)
[2018-08-05 10:03] VITALS: RESP 18; TEMP 97.6; O2SAT 97
[2018-08-05 10:24] VITALS: BP 143/71; PULSE 94
== END 2018-08-05 12:36 | disposition home or self-care (01) ==
LOC: H.ENDO 07:30
PROVIDERS: ATTEND Internal Medicine Gastroenterology
DX: Z12.11 Encounter for screening for malignant neoplasm of colon (principal); I11.0 Hypertensive heart disease with heart failure; I50.9 Heart failure, unspecified; K64.8 Other hemorrhoids; D12.6 Benign neoplasm of colon, unspecified; K62.5 Hemorrhage of anus and rectum; K62.89 Other specified diseases of anus and rectum; K57.30 Diverticulosis of large intestine without perforation or abscess without bleeding; E11.9 Type 2 diabetes mellitus without complications
CPT/HCPCS: 45380; 45381; 45385; 82948; 88305; J2001; J2250; J2704; J7120